=== PATIENT | male | born 1965 | race Caucasian/White ===

== ENCOUNTER → 2021-09-16 17:13 | Outpatient (BNVA) | payer BC, SELFPAY | PROVIDERS: Visit Provider Nurse Practitioner Family | DX: Z20.822 Contact with and (suspected) exposure to COVID-19 (principal) | CPT/HCPCS: 87635 ==

== ENCOUNTER → 2024-01-11 10:00 | Outpatient (BNVA) | payer OTHER, SELFPAY | PROVIDERS: PCP Family Medicine; Referring Provider Family Medicine; Visit Provider Student in an Organized Health Care Education/Training Program | DX: M25.569 Pain in unspecified knee (principal); M17.12 Unilateral primary osteoarthritis, left knee; Z01.818 Encounter for other preprocedural examination | CPT/HCPCS: 73560; 73565 ==

== ENCOUNTER → 2025-01-30 10:44 | Outpatient (BNVA) | payer OTHER, SELFPAY | PROVIDERS: PCP Family Medicine; Visit Provider Student in an Organized Health Care Education/Training Program | DX: M25.561 Pain in right knee (principal); M25.562 Pain in left knee; M17.0 Bilateral primary osteoarthritis of knee | CPT/HCPCS: 73560; 73565 ==

== ENCOUNTER → 2025-02-20 14:13 | Outpatient (BNVA) | payer OTHER, SELFPAY | PROVIDERS: PCP Family Medicine; Visit Provider Physician Assistant | DX: G56.03 Carpal tunnel syndrome, bilateral upper limbs (principal); G56.23 Lesion of ulnar nerve, bilateral upper limbs | CPT/HCPCS: 73110 ==

== ENCOUNTER 2025-03-05 11:13 | Outpatient (CLI) | payer OTHER, SELFPAY ==
[2025-03-05 12:27] LABS: Hematocrit 42.4 % (37-53); Hemoglobin 14.60 g/dL (11.27-16.99); Mean Corpuscular HGB Conc 34.4 g/dL (30-55); Mean Corpuscular Hemoglobin 33.5 pg (27-33); Mean Corpuscular Volume 97.2 fl (82-101); Nucleated Red Blood Cells % 0 %; Platelet Count 210 10^3/cmm (157-399); Red Blood Count 4.36 10^6/uL (3.85-5.65); White Blood Count 5.90 10^3/uL (3.29-11.43)
[2025-03-05 12:42] LABS: Glucose Urine UA Negative (Normal); Nitrate Urine Negative (Negative); Specific Gravity, Urine 1.017 (1.005-1.030)
[2025-03-05 12:47] LABS: Add Urine Microscopic? YES
[2025-03-05 12:49] LABS: Alanine Aminotransferase 37 U/L (0-41); Albumin Level 4.2 g/dL (3.5-5.2); Alkaline Phosphatase 75 U/L (40-130); Anion Gap 15.4 (5-19); Aspartate Amino Transferase 37 U/L (0-40); Blood Urea Nitrogen 23 mg/dL (8-23); Calcium 9.0 mg/dL (8.5-10.5); Carbon Dioxide 24 mmol/L (22-29); Chloride 101 mmol/L (98-107); Globulin 3.2 g/dL (1.3-4.6); Glucose 114 mg/dL (65-115); Osmolality Calculated 287 mOsm/kg (285-295); Potassium 4.4 mmol/L (3.5-5.1); Sodium 136 mmol/L (136-145); Total Protein 7.4 g/dL (6.6-8.7)
== END 2025-03-05 11:14 | disposition home or self-care (01) ==
PROVIDERS: PCP Family Medicine; Visit Provider Student in an Organized Health Care Education/Training Program
DX: Z01.818 Encounter for other preprocedural examination (principal)
CPT/HCPCS: 36415; 80053; 81001; 85025

== ENCOUNTER 2025-03-07 10:24 | Outpatient (CLI) | payer OTHER, SELFPAY ==
--- NOTE | 2025-03-07 10:30 | CT_ITS ---
WS: [id number] CT RIGHT KNEE, NONCONTRAST [facility] TECHNIQUE: Noncontrast CT of the RIGHT knee to include the RIGHT hip and ankle. CLINICAL INFORMATION: M17.11 - Unilateral primary osteoarthritis, right knee COMPARISON: None. DLP: 1096.[address] scans at [facility] use at least one of these dose optimization techniques: automated exposure control; mA and/or kV adjustment per patient size (includes targeted exams where dose is matched to clinical indication); or iterative reconstruction. FINDINGS: Advanced tricompartmental arthritis Right knee. Hypertrophic patella with patellar enthesophytes. Joint space narrowing worse in the medial joint compartment. Advanced degenerative narrowing of the patellofemoral articulation. Prior sequelae of previous intramedullary nat fixation RIGHT femur with a nat removal. Mineralization in the intramedullary canal. Vascular calcification CT/CT knee RT [facility] [id number] IMPRESSION: Images obtained for preoperative purposes.
== END 2025-03-07 10:25 | disposition home or self-care (01) ==
LOC: RAD 10:25
PROVIDERS: PCP Family Medicine; Visit Provider Student in an Organized Health Care Education/Training Program
DX: M17.11 Unilateral primary osteoarthritis, right knee (principal)
CPT/HCPCS: 73700

== ENCOUNTER 2025-03-26 10:22 | Observation (INO) | payer OTHER, SELFPAY ==
[2025-03-26] VITALS (18 sets, daily range): BP systolic 83–132; BP diastolic 51–103; PULSE 69–105; RESP 10–18; TEMP 36.2–36.7; O2SAT 93–98; BMI 29.7
[2025-03-26] MEDS: acetaminophen 1,000 MG/100 ML PIGGYBACK 400 MG IV ×2 (06:29→15:43)
[2025-03-26 06:38] LABS: Hematocrit 44.4 % (37-53); Hemoglobin 15.40 g/dL (11.27-16.99); Mean Corpuscular HGB Conc 34.7 g/dL (30-55); Mean Corpuscular Hemoglobin 32.8 pg (27-33); Mean Corpuscular Volume 94.5 fl (82-101); Nucleated Red Blood Cells % 0 %; Platelet Count 245 10^3/cmm (157-399); Red Blood Count 4.70 10^6/uL (3.85-5.65); White Blood Count 5.13 10^3/uL (3.29-11.43)
[2025-03-26 06:52] LABS: Anion Gap 17.1 (5-19); Blood Urea Nitrogen 16 mg/dL (8-23); Calcium 9.1 mg/dL (8.5-10.5); Carbon Dioxide 23 mmol/L (22-29); Chloride 99 mmol/L (98-107); Creatinine Clr Calc Pharmacy 108.2144; Glucose 115 mg/dL (65-115); Osmolality Calculated 282 mOsm/kg (285-295); Potassium 4.1 mmol/L (3.5-5.1); Sodium 135 mmol/L (136-145)
--- NOTE | 2025-03-26 06:55 | ANES.PREANE2 ---
Pre-Anesthetic Assessment Height/Weight: Height 6 ft 1 in Weight 225 lb Temp Pulse Resp BP Pulse Ox O2 Del Method 97.8 F 80 18 132/103 96 Room Air 03/26/25 06:09 03/26/25 06:09 03/26/25 06:09 03/26/25 06:09 03/26/25 06:09 03/26/25 06:17 Preop Diagnosis: Knee arthritis Operation Date: 03/26/25 07:00 Proposed Procedures p RIGHT Drew Robot Total Knee Arthroplasty(Right) - Alex Dickens, DO Was Beta Billy taken within 24 hours: N/A Was Clonidine taken within 24 hours: N/A Last intake: Intake Last Liquid Date 03/25/25 Last Liquid Time 20:00 Last Solid Date 03/25/25 Last Solid Time 20:00 Social No alcohol and No tobacco Exam alert, oriented x 3, clear to auscultation bilaterally and regular rate & rhythm Airway Submandibular: within normal limits Cervical ROM: within normal limits Mallampati: Class III Dentition: full Anesthetic Plan ASA status: 3 Anesthesia: MAC and Regional (specify below) Other: No prior issues with anesthesia NPO since yesterday evening History of hypertension on amlodipine, HCTZ and losartan. Preop BP 132/103 Denies any pulmonary issues. Quit smoking few decades ago Labs reviewed acceptable for procedure METs greater than 4 Plan for spinal anesthesia with adductor canal block Medications/Allergies Home Medications ?Medication ?Instructions ?Recorded ?Confirmed ?Last Taken ?Type hydrochlorothiazide 25 mg tablet 25 mg PO DAILY 04/15/21 03/23/25 03/26/25 History losartan 100 mg tablet 100 mg PO DAILY 04/15/21 03/23/25 03/23/25 History meloxicam 7.5 mg tablet 7.5 mg PO DAILY 04/15/21 03/23/25 03/18/25 History potassium chloride 10 mEq 10 meq PO DAILY 04/15/21 03/23/25 03/26/25 History tablet,extended release amlodipine 5 mg tablet 5 mg PO DAILY 09/16/21 03/23/25 03/26/25 History Allergies Allergy/AdvReac Type Severity Reaction Status Date / Time No Known Allergies Allergy Verified 03/18/25 21:49 Current Medications Generic Name Dose Route Start Last Admin Trade Name Freq PRN Reason Stop Dose Admin Sodium Chloride 1,000 mls @ 30 mls/hr 03/26/25 06:00 03/26/25 06:28 Sodium Chloride 0.9% IV 03/27/25 05:59 30 mls/hr .Q24H PILAR Administration PFSH Anesthesia Medical History Hypertension Surgical History History of open reduction and internal fixation (ORIF) procedure right femur History of left knee surgery Social History Smoking and tobacco/nicotine status: never used tobacco/nicotine Data Anesthesia 03/26/25 06:15 03/26/25 06:15 Short CBC 03/26/25 Range/Units 06:15 WBC 5.13 (3.29-11.43) 10^3/uL Hgb 15.40 (11.27-16.99) g/dL Hct 44.4 (37-53) % MCV 94.5 (82-101) fl Plt Count 245 (157-399) 10^3/cmm Neut % (Auto) 58.2 % Neut # (Auto) 2.99 (1.8-7.7) 10^3/uL BMP 03/26/25 06:15 Sodium 135 L Potassium 4.1 Chloride 99 Carbon Dioxide 23 BUN 16 Creatinine 0.9 Glucose 115 Calcium 9.1
[2025-03-26] MEDS: ceFAZolin 2,000 MG in sodium chloride 0.9% (plus) 50 ML 100 MG IV ×3 (06:59→21:34)
--- NOTE | 2025-03-26 06:59 | W.PM.OPSFHP ---
Same Day Surgery H&P Indication for Procedure/HPI DATE OF PROCEDURE: March 26, 2025 CHIEF COMPLAINT/INDICATIONFOR SURGICAL PROCEDURE: Right knee DJD PREOP DIAGNOSIS: Right knee knee arthritis PLANNED PROCEDURE: Operation Date: 03/26/25 07:00 Proposed Procedures p RIGHT Drew Robot Total Knee Arthroplasty(Right) - Alex Dickens, DO Medications/Allergies* Home Medications ?Medication ?Instructions ?Recorded ?Confirmed ?Type hydrochlorothiazide 25 mg tablet 25 mg PO DAILY 04/15/21 03/23/25 History losartan 100 mg tablet 100 mg PO DAILY 04/15/21 03/23/25 History meloxicam 7.5 mg tablet 7.5 mg PO DAILY 04/15/21 03/23/25 History potassium chloride 10 mEq 10 meq PO DAILY 04/15/21 03/23/25 History tablet,extended release amlodipine 5 mg tablet 5 mg PO DAILY 09/16/21 03/23/25 History Allergies/Adverse Reactions Allergy/AdvReac Type Severity Reaction Status Date / Time No Known Allergies Allergy Verified 03/18/25 21:49 Current Medications: Generic Name Dose Route Start Last Admin Trade Name Freq PRN Reason Stop Dose Admin Sodium Chloride 1,000 mls @ 30 mls/hr 03/26/25 06:00 03/26/25 06:28 Sodium Chloride 0.9% IV 03/27/25 05:59 30 mls/hr .Q24H PILAR Administration Pertinent History/Comorbid Conditions* Medical History (Updated 02/20/25 @ 14:47 by ANGELA Zamorano) Hypertension Surgical History (Updated 04/15/21 @ 10:22 by Marquis Blackburn MD) History of open reduction and internal fixation (ORIF) procedure right femur History of left knee surgery Social History Smoking and tobacco/nicotine status: never used tobacco/nicotine Pertinent Exam Findings alert, oriented x 3, operative site marked and procedure specific exam findings Please refer to detailed orthopedic examination on 01/30/2025 listed below: Right knee examination: Right knee examination has decreased range of motion with pain on deep flexion, patient has 5 to 10 degree varus deformity correctable on examination. Patient has medial and lateral joint line tenderness palpation most severe medially, tenderness palpation over retropatellar space with crepitus on patella range of motion, stable varus valgus stress testing, smooth hip range of motion with no pain. Examination left knee: Examination left knee decreased range of motion with pain on deep flexion, patient has 5 to 10 degree valgus deformity appreciated correctable on examination competent MCL noted. He has severe lateral joint line tenderness palpation with medial joint line tenderness palpation tenderness palpation over the retropatellar space with crepitus on patella range of motion no evidence of patellar instability stable varus valgus stress. Smooth hip range of motion with no pain or discomfort Recommendations Risks and benefits of procedure reviewed and Patient/family agree to proceed Surgery/Procedure today Other Plans: Plan to proceed to the OR today for a right total knee arthroplasty?Drew robotic assistance cleared the preoperative clearance process no acute changes in overall health since last office visit understands the ins outs procedure risk benefits complication alternatives of surgery and through shared decision making patient like to proceed with surgical invention. All questions answered this time. At this point in time denies any injection of the knee in the past 3 months. All questions answered. Coding Level of Care Code Acute Code for Chg Fwtemitope
[2025-03-26] MEDS: tranexamic acid 1,000 mg/10mL SDV 1000 MG IV (07:11)
--- NOTE | 2025-03-26 07:45 | ANES.PROC ---
Anesthesia Procedures Procedure/Date: 03/26/25 Right adductor canal block for postop pain control Nerve Block ^: Nerve Block 1: Main Anesthesia: spinal anesthesia block Time Out Performed: Yes Consent: requested by attending/covering physician and from patient Nerve block location: adductor canal Anesthesia monitors applied: pulse oximetry, EKG, BP cuff and oxygen Nerve block position: supine Anesthetic Used: ropivicaine 0.5% Amount of anesthesia used (mL): 15 Ultrasound used to: recognize landmarks Nerve Stimulator Used?: Yes Interscalene/Femoral BLK: other needle (pjunk 4inch) Injection: neg aspiration of heme Patient Tolerated Procedure: well Complications: none
[2025-03-26] MEDS: ROPivacaine 0.2% Premix 100 mL 200 MG INTRA-ARTI (08:00)
[2025-03-26] MEDS: tranexamic acid 1,000 mg/10mL SDV 1000 MG XX (08:00)
--- NOTE | 2025-03-26 09:09 | W.PM.BPON ---
Date of Procedure: 03/26/2025 Surgeon: Alex Dickens DO Position Description Manager(s): Kumar Dickens PA-C Procedure(s) performed: Right total knee arthroplasty?Drew robotic assisted Findings of the procedure(s): Underwent procedure as planned without issues or complications. Estimated blood loss: 25 mL Specimen(s) removed: Tibia femur and patellar bone cuts removed Post-operative diagnosis: Right knee DJD
--- NOTE | 2025-03-26 09:11 | P.OP_ITS ---
Operative Report Date of procedure: March 26, 2025 Surgeon: Alex Dickens DO Environmental Science Program Director: Kumar Dickens PA-C: PA was necessary for assistance in this case with leg positioning retraction and protection of neurovascular structures as well as assistance in implantation wound closure and dressing application. Procedure: Preoperative diagnosis: Right knee degenerative joint disease Post-op diagnosis: Same Procedure done: Right total knee arthroplasty, cemented?robotic assisted Drew Implants: Kelly triathlon size 7 femur CR cemented?Right Comstock triathlon size? 6 tibia universal baseplate cemented Comstock triathlon symmetric patella size 36 mm Kelly triathlon polyethylene 10mm Surgeon: Alex Dickens DO Estimated blood?loss: 25 mL Tourniquet 61minutes IV fluids: 1800 mL Urine output: 200 mL Complications: None Condition: stable Disposition: floor Brief History: Patient is a 59-year-old male with with chronic?Right knee degenerative joint d isease.? Patient has been worked up in the outpatient setting in the orthopedic office at this point time through shared decision making given? bxgh-op-vsvi arthritis as well as failed conservative treatment, and pt would?like to proceed with a?Right total knee arthroplasty.? Through shared decision making elected to proceed with surgical intervention for?Right total knee arthroplasty Drew robotic assisted.? We talked about continued conservative treatment and surgical intervention as far as the risk benefits complications alternatives surgical and nonsurgical treatment options.? At this point time understanding patient risks with surgery he agrees to proceed with surgical intervention.? Once again? risk with surgery include but are not?limited to make it better make it worse blood clot, heart attack, stroke, on the table, infection, injury to nerves or vessels, persistent pain, arthrofibrosis, implant failure.? Understanding these risks patient agrees to proceed with surgical intervention consent was obtained in the preoperative holding area.? All questions answered. Procedure: Patient was seen and evaluated in the preoperative holding area.? Consent was reviewed and signed with patient with plan for?Right total knee arthroplasty.? All questions answered.? Correct extremity marked.? Patient seen and evaluated by the anesthesia department and once cleared for surgery was taken back to the operative suite.? Patient was placed into a supine position on the OR table.? All bony prominences were well-padded.? Patient was appropriately secured to the bed.? Patient underwent anesthesia per the anesthesia department.? Patient received spinal anesthesia and? Devlin catheter was placed.? A nonsterile tourniquet was applied to the?Right thigh.? At this point in time a final timeout performed.? Patient received appropriate preoperative antibiotics and TXA. Next the?Right?lower extremity was then prepped and draped in standard orthopedic fashion. Esmarch tourniquet was used exsanguinate the?Right?lower extremity.? Tourniquet was insufflated to 250 mmHg. A standard anterior incision was made over midline of the knee.? Sharp scalpel excision through skin and subcutaneous tissue full-thickness skin flaps were made.? Fascia was elevated off of the extensor retinaculum was stable with medial parapatellar arthrotomy was then made.? The performed standard sequential releases..? Immediately on entry into the joint patient was found to have severe eburnated bone and tricompartmental arthritic changes noted.? With significant osteophyte formation.? Next the the patella was then stuffed and the knee was then flexed.?? Kateryna was placed superiorly around the anterior aspect of the femur this was freed of synovium and I subsequently then placed by 2 femur pins to establish my femur arrays for the Drew robot.? These were then placed bicortically and? femur array was then appropriately secured with appropriate visualization.? Next attention was turned towards the tibial rays.? These were then drilled sequentially bicortically in parallel fashion and intraincisional.? I then placed my guide as well as my tibial array on in place.? This was appropriately secured and had excellent visualization with the Drew robot.? Next the tibial checkpoint as well as femur checkpoint were then placed.? At this point time I then subsequently established my head center as well as my medial?lateral malleoli as well as my checkpoints.? Next utilizing standard Drew technology I then mapped out the appropriate points and confirmation points around the femur as well as the tibia in standard fashion.? Once this was then done I then removed all osteophytes in preparation for dynamic testing.? All osteophytes were removed as well as I removed the ACL and the PCL was excised due to its significant tearing and degeneration noted.? At this point time the knee was brought into full extension and we performed our standard evaluation of our gap balancing stressing his?ligaments and extension as well as flexion appropriate adjustments were made to have appropriate gap balancing in both flexion and extension.? This plan for final cuts to place ligament in appropriate position to correct deformity within the ligamentous tolerances. We get a preoperative plan evaluating our implants which was a size 7 femur and a size 6 tibia.? Next we brought in the Drew robot and sequentially made our femur cuts.? All excess bony cuts were then removed.? Finally we made our tibial cut.? Once this was done a standard PCL retractor was then placed into this position I excised the medial and?lateral meniscus.? The tibial cut was then subsequently removed all excess bony debris was removed.? I then utilized a?lamina form tamper operator and remove the posterior osteophytes.? At this point time sized the tibia and confirmed this was a size 6.? I utilized our blunt probe to establish rotation of tibial implant.? Once this was done I then placed my tibia size 6 trial in appropriate position and then subsequently placed tibial pins to hold this into place placed a size 10 mm poly as well as a size 7 femur which was appropriately impacted in place knee was then subsequently brought into extension. Trials were then assessed,? this was stable with varus valgus stress in extension as well as had symmetrical translation when brought into flexion demonstrating symmetrical gaps. I had excellent balance gaps in flexion and extension with varus and valgus stresses.? At this point I was satisfied with these implants these were then verified and opened on the back table size 6 tibia, size 7 femur,? size 10 mm polythickness.? We did confirm appropriate gap balancing and stresses as well as alignment utilizing? Drew and were satisfied with this plan.? ?At this point time with my trials in place I then towel clip the patella everted this made appropriate measurements subsequently utilizing freehand technique performed by patellar resurfacing this was confirmed to be appropriate resection and subsequently sized to be a 36mm symmetric.? My drill peg guides were then clamped and appropriate position and appropriate position in the patella for appropriate tracking and parallel with the joint.? Pegs were drilled trial implant was placed and the knee was then subsequently ranged and found to have excellent patellar tracking.? Femur pegs were then drilled.?At this point time all of our trial implants were removed.? All checkpoints as well as guidepins and arrays were removed and appropriate counts made.? Satisfied with our tibial placement rotation I then utilized the keel punch and prepped the tibia.? The wound bed? was thoroughly irrigated and dried and prepped for cementation.? Cement was mixed on the back table.? Once cement was ready this was then covered onto the tibia and the tibial baseplate was then impacted and all excess cement was removed.? Next the polyethylene was then impacted into place on the tibial baseplate.? Next cement was placed onto the femur as well as under the femur implants and impacted in to place and all excess cement was extruded and removed.? Knee was taken into full extension? to clear all excess cement was removed.? Warm saline was placed over the joint.? I then towel clip patella and dried for cementation. cemented the patella into place.? This was all clamped and the cement was allowed to cure.? Thorough irrigation performed with pulse?lavage.? I then placed my periarticular injection while the cement was curing.? Once cured the knee was taken through range of motion and had excellent stability and gaps were balanced in flexion and extension.? Tourniquet was then deflated. hemostasis satisfactory with electrocautery.? Next I then subsequently closed the capsule with Ethibond suture as well as a running strata fix suture.? Knee was then taken through range of motion 30 times.? Next the skin was then closed in?layered fashion of running stratifix sutures of deep and subcutenous tissue and skin.? ?closed in flexion and Prineo glue was then placed over the incision this allowed to cure.? Incision was covered with Silverlon, with ABDs soft roll and Fabián wrap.? Patient was then awakened from anesthesia and taken to PACU in stable condition. Disposition: Patient taken to PACU in stable condition will be admitted to the floor for pain control PT/OT weight-bear as tolerated?Right?lower extremity dressing changes as needed, DVT prophylaxis. Pain control. Patient will receive appropriate postoperative antibiotics. patient will be seen today by the internal medicine team for medical management.? Patient will follow up with the office in 2 weeks.? Patient understands agrees with current plan.? All questions answered.
--- NOTE | 2025-03-26 09:17 | XRR_ITS ---
PROCEDURE INFORMATION: Exam: XR Right Knee Exam date and time: 03/26/2025 9:36 AM Age: 60 years old Clinical indication: Device placement; Joint replacement hardware; Prior surgery; Surgery date: Post-operative (0-2 days); Surgery type: S/P R tka TECHNIQUE: Imaging protocol: Radiologic exam of the right knee. Views: 1 or 2 views. COMPARISON: CT knee RT [facility] [id number] 03/07/2025 10:53 AM FINDINGS: Bones/joints: There has been remote removal of an intramedullary nat within the right femur. Status post recent right knee replacement with some postoperative gas densities present anteriorly on the cross-table lateral view. Bandage material overlies the anterior aspect of the right knee. There is satisfactory alignment and positioning of the right knee prosthesis. Soft tissues: Normal. XR/XR knee RT 1-2V [id number] IMPRESSION: 1. There are no acute fractures. 2. Status post right knee replacement with postoperative gas density seen anteriorly on the cross-table lateral view.
--- NOTE | 2025-03-26 09:38 | PM.PACU ---
PACU note Narrative: Patient is a 60-year-old male that just underwent a right total knee arthroplasty. Pt transferred to PACU in stable condition. Dressing is dry. pt is awake and alert. pt can wiggle toes. Distal pulses are palpable toes are warm and well-perfused. Cap refill is normal and under 2 seconds. Sensation to foot is intact. Pain is controlled. Exam: awake Disposition: admitted
--- NOTE | 2025-03-26 09:42 | PM.CONSULT ---
Providers/Reason For Consult Consulting Physician/Specialty*: Hospitalist Reason for Consult*: Medical management Attending Physician: Alex Dickens DO Primary Care Provider: Thaddeus Burnham MD History of Present Illness History of Present Illness Manny Toney is a 60 year old gentleman with a history of hypertension and right knee osteoarthritis who underwent a robotic-assisted right total knee arthroplasty today. The procedure was reported as uncomplicated with an estimated blood loss of 25 mL. He is currently in the recovery phase under spinal anesthesia and reports no pain or nausea. He denies fever, chills, chest pain, shortness of breath, cough, gastrointestinal or genitourinary bleeding, rash, or other acute symptoms. Planned management includes reassessment of blood counts, initiation of VTE prophylaxis, pain control, and physical-therapy evaluation with an anticipated discharge home tomorrow. Review of Systems Const: Denies: fever(s), chills, body aches or malaise ENMT: Denies: throat pain Card: Denies: chest pain, edema, pre-syncope or dyspnea on exertion Resp: Denies: dyspnea, productive cough, change in phlegm color or hemoptysis GI: Denies: abdominal pain, nausea, vomiting, diarrhea, constipation, hematochezia or melena : Denies: flank pain, difficulty urinating, urinary frequency or hematuria Musc: Denies: back pain, joint swelling or joint redness Skin/Breast: Denies: rash or new lesions Neuro: Denies: headache(s) or confusion Medications/Allergies Home Medications ?Medication ?Instructions ?Recorded ?Confirmed ?Last Taken ?Type hydrochlorothiazide 25 mg tablet 25 mg PO DAILY 04/15/21 03/23/25 03/26/25 History losartan 100 mg tablet 100 mg PO DAILY 04/15/21 03/23/25 03/23/25 History meloxicam 7.5 mg tablet 7.5 mg PO DAILY 04/15/21 03/23/25 03/18/25 History potassium chloride 10 mEq 10 meq PO DAILY 04/15/21 03/23/25 03/26/25 History tablet,extended release amlodipine 5 mg tablet 5 mg PO DAILY 09/16/21 03/23/25 03/26/25 History Allergies Allergy/AdvReac Type Severity Reaction Status Date / Time No Known Allergies Allergy Verified 03/18/25 21:49 Current Medications Generic Name Dose Route Start Last Admin Trade Name Edwin PRN Reason Stop Dose Admin Sodium Chloride 1,000 mls @ 30 mls/hr 03/26/25 06:00 03/26/25 07:37 Sodium Chloride 0.9% IV 03/27/25 05:59 Infused .Q24H PILAR Infusion PFSH Acute PFSH: Medical History Hypertension Surgical History History of open reduction and internal fixation (ORIF) procedure right femur History of left knee surgery Social History Smoking and tobacco/nicotine status: never used tobacco/nicotine Alcohol intake: current Alcohol intake frequency: 3 or more drinks per day Alcohol type: hard liquor Substance/Drug Use: never Vitals/I&O/Wt Last Vital Signs Temp 97.8 F 03/26/25 06:09 Pulse 80 03/26/25 06:09 Resp 18 03/26/25 06:09 BP 132/103 03/26/25 06:09 Pulse Ox 96 03/26/25 06:09 O2 Del Method Room Air 03/26/25 06:17 03/25/25 03/26/25 03/26/25 22:59 06:59 14:59 Intake Total 1850 / 1850 Output Total 225 / 225 Balance 1625 / 1625 Weight last 48 hrs Weight 102.058 kg Physical Exam Const: COMMON NORMALS: patient oriented x3 and alert GENERAL APPEARANCE: cooperative ORIENTATION/CONSCIOUSNESS: Yes awake HENMT: COMMON NORMALS: oropharynx normal Neck/C-Spine: COMMON NORMALS: no JVD Resp: COMMON NORMALS: normal respiratory effort and clear to auscultation bilaterally AUSCULTATION: clear to auscultation bilaterally Cardio: COMMON NORMALS: no JVD, regular rhythm, S1 normal heart sound present, S2 normal heart sound present and No murmurs present (Cardio) RHYTHM: regular rhythm HEART SOUNDS: S1 normal heart sound present and S2 normal heart sound present GI: COMMON NORMALS: Normal to inspection, nondistended, normoactive bowel sounds present, Soft to palpation and non-tender PALPATION: Yes Soft to palpation Extremity: COMMON NORMALS: no joint enlargement and no pedal edema OTHER: Post-op knee dressing. Starting to minimally move toes BL. No edema. Neuro: COMMON NORMALS: patient oriented x3 and moves all extremities SENSORIUM/ORIENTATION: Yes alert Skin: COMMON NORMALS: no rashes or lesions noted GENERAL SKIN EXAM: no rashes or lesions noted Urinary Catheter Management: Devlin: Cath Placed During This Visit: yes Urinary Catheter Date of Insertion: 03/26/25 Urinary Catheter Time of Insertion: 07:17 Data 03/26/25 06:15 03/26/25 06:15 A&P Assessment and plan 1. Status post total right knee replacement: Robotic-assisted right TKA today; EBL 25 mL; currently pain-free but spinal anesthesia effects present; labs within normal limits. Reviewed vitals, CBC, BMP, knee x-ray, orthopedic provider note. Discussed with orthopedic surgeon. Discussed with nursing, counseling case manager. - Monitor CBC tomorrow to screen for post-op anemia. - Hold meloxicam post-operatively. - I-S - Pain control with oxycodone as needed; IV dilaudid for severe breakthrough pain. - Zofran PRN for nausea. - Begin Eliquis tomorrow for VTE prophylaxis per orthopedics. - Physical-therapy evaluation and mobilization. - Anticipated discharge home tomorrow if pain, mobility, and labs satisfactory. Plan: Hypertension : Chronic HTN on amlodipine, losartan, HCTZ; barbie-operative BP 132/103 in PACU but currently 94/70. - Hold antihypertensives for now, with blood pressure rising may resume home antihypertensives (amlodipine, losartan, HCTZ). - Monitor blood pressure during hospitalization. Heavy alcohol use : Patient admits to liquor intake ~5?10 drinks daily; counseled on cardiovascular and oncologic risks. - Advised to limit alcohol to <= 2 drinks/day. - No withdrawal symptoms expected but monitor clinically while inpatient. - Provide educational counseling materials on alcohol reduction. - Start thiamine, folic acid, multivitamin PDMP PDMP Reviewed: Not Reviewed Consult Attestations Medical Necessity Statement: Continue postoperative care after right TKA, pending PT assessment, reassessment of blood counts, discharge planning and arrangements. and High MDM includes amount and/or complexity of data reviewed/ordered [ previous or external records, resulted lab(s)/test(s), ordered lab(s)/test(s) and other healthcare professional discussion] and described risk of complication, morbidity or mortality of management as documented Diagnoses Status post total right knee replacement Z96.651
--- NOTE | 2025-03-26 10:30 | ANE.PACU2 ---
Inpatient post-anesthesia follow up: Airway intact: Yes Vital signs: Temperature 97.5 F Pulse Rate 79 Respiratory Rate 18 Blood Pressure 127/84 Pulse Oximetry 98 Oxygen Delivery Me thod Room Air Oxygen Flow Rate Fraction of Inspir ed Oxygen Hydration adequate: Yes Nausea and vomiting: No Pain level: 1 Mental status: Baseline
--- OUTSIDE RECORDS SUMMARY | 2025-03-26 12:20 | XMS_ITS | Patient Health Record ---
Author Organization [facility] Address [address] [place] [address] Care Team Providers Care Logistician Name Role Phone Kate Mesa Primary Care Provider Emiliano Cheng Unavailable [phone] Allergies No Known Allergies Reason For Referral No Information Medications Medication SIG (Take, Route, Frequency, Duration) Notes Start Date End Date Status Meloxicam 15 MG Tablet 1 tablet Orally Once a day; Duration: 90 days M19.90 Osteoarthritis Active hydroCHLOROthiazide 25 MG Tablet 1 tablet in the morning Orally Once a day; Duration: 30 days E10 Essential hypertension Active Multivitamin - Tablet 1 tablet Orally Once a day Active Losartan Potassium 100 MG Tablet 1 tablet Orally Once a day; Duration: 90 days E10 Essential hypertension Active amLODIPine Besylate 5 MG Tablet 1 tablet Orally once daily in evening for blood pressure; Duration: 90 days E10 Essential hypertension Active Fluticasone Propionate 50 MCG/ACT Suspension 1 spray in each nostril Nasally Once a day; Duration: 90 days J30.2 Seasonal allergies Active Cetirizine HCl 10 MG Tablet 1 tablet Orally Once a day; Duration: 90 days J30.2 Seasonal allergies Active Sildenafil Citrate 20 MG Tablet 1 - 5 tablets as needed to achieve erection Orally Do not exceed 5 tablets daily; Duration: 30 days N52.9 Male erectile dysfunction Active Fenofibrate 48 MG Tablet 1 tablet with food Orally Once a day; Duration: 90 days E78.1 Hypertriglyceridemia Active Immunizations Vaccine Route Administration Date Status Comme nts COVID-19 Vaccine (Moderna) Dose #1 Unknown 03/15/2021 A dministered COVID-19 Vaccine (Moderna) Dose #2 Unknown 04/05/2021 A dministered Flucelvax Quadrivalent Pres Free Unknown 05/26/2021 Ref used Social History Tobacco Use: Social History Observation Description Date Details (start date - stop date) Former Smoker NA - NA Social History Depression Screening Social Info Question Answer Notes PHQ-9 Little interest or pleasure in doing thin gs Not at all Feeling down, depressed, or hopeless Not at all Trouble falling or staying asleep, or sleeping t oo much Several days Feeling tired or having little energy Nearly tamera ry day Poor appetite or overeating Nearly every day Feeling bad about yourself, or that you are a failure, or have let yourself or your family down Not at all Trouble concentrating on thi ngs, such as reading the newspaper or watching television Not at all Moving or speaking so slowly that other people could have noticed. Or the opposite ? being so fidgety or restless that you have been moving around a lot more than usual Not at all Thoughts that you would be b rubio off , or of hurting yourself in some way Not at all Total Score 7 Interpretation Mild Depression Drugs/Alcohol: Social Info Question Answer Notes Alcohol Screen (Audit-C) Did you have a drink containing alcohol in the past year? Yes How often did you have a drink containing alcohol in the past year? 4 or more times a week (4 points) How many drinks did you have on a typical day when you were drinking in the past year? 3 or 4 drinks (1 point) How often did you have 6 or more drinks on one occasion in the past year? Never (0 point) Points 5 Interpretation Positive Drugs Have you used drugs other than those for medical reasons in the past 12 months? No Caffeine Intake: 3-4 cups per day Tobacco Use: Social Info Question Answer Notes Screening Not Performed: Do you smoke? No xTobacco Use/Smoking Are you a former smoker How long has it been since you last smoked? > 10 years Tobacco use other than smoking: Are you an other tobac co user? No Additional Details Category Social Info Options Details Drugs/Alcohol: Do you smoke marijuana? De nies Do you drink alcohol? Yes Problems Problem Type SNOMED Code ICD Code Onset Dates Problem Status W/U Status Risk Notes Problem Essential hypertension (89346232) Benign essential HTN (I10) Active confirmed Problem Essential hypertension (87721583) Essential hypertension (I10) Active confirmed Problem Hypertriglyceridemia (702750315) Hypertriglyceridemia (E78.1) Active confirmed Problem Osteoarthritis (898544919) Osteoarthritis (M19.90) Active confirmed Problem Morbid obesity (842701414) Morbid obesity (E66.01) Active confirmed Plan Of Treatment No Information Insurance Providers Payer Name Payer Address Payer Phone Subscriber Number Group Number Insured Name Patient Relationship to Insured Coverage Start Date Coverage End Date [facility] [address] [place] [id number] [phone] [id number] Manny Toney Self - patient is the insured Medical (General) History Medical History History ICD Code Benign essential HTN I10 Osteoarthritis M19.90 Surgical History Surgery Date(Month/Year) right femur rebreak x2 left knee scope Hospitalization History Reason Date(Month/Year) see surgeries
--- OUTSIDE RECORDS SUMMARY | 2025-03-26 12:21 | XMS_ITS | Data Portability ---
Author Organization KAYLI Figueroa [facility] Address [address] [address] Care Team Providers Care Crusher Name Role Phone KRISTINA BURNHAM Primary Care Provider [phone] Assessment Encounter Date Assessment Date Assessment LastModified by Organization Details LastModified Time 09/01/2023 09/01/2023 Discussed healthy lifestyle including well-balanced diet, healthy weight, and regular exercise. Will obtain routine lab work for evaluation and health maintenance. Refills provided for his sildenafil. Discussed options for his knee pain and the patient will consider a referral to discuss knee replacement versus proceeding with just injections. Hand numbness appears to be referred positional and related to ulnar entrapment at the elbow. [email or web address] Not available 09/01/2023 12:08:20 Plan of Treatment Reminders Order Date Submit Date Provider Last Modified By Organization Details Last Modified Time Details Appointments None recorded. Lab PSA, serum or plasma 2023 024 [employer] [facility], [address] [place] [address] [address], [address] [place], [address], 4 06:18:05 lipid panel, blood 2023 024 [facility], [address] [facility], [facility] 1, [place], [address], 4 17:41:02 CMP, serum or plasma 2023 024 [facility], [address] [facility], [facility] [address], [address], 4 17:41:00 CBC [address] [facility], [address], [facility] 1, [place], [address], 4 11:20:01 Referral orthopedic surgeon referral 2023 024 [email or web address] [facility], [address] [place], [address], 4 12:13:11 Procedures None recorded. Surgeries None recorded. Imaging None recorded. Medication Orders Kenalog 40 mg/mL suspension for injection 2023 024 hpliler Not available 4 09:16:59 Kenalog 40 mg/mL suspension for injection 2023 024 hpliler Not available 4 09:16:59 sildenafil (pulmonary hypertensio n) 20 mg tablet 2023 024 [facility] [place], [address] [place], [address], 4 18:10:42 Patient TargetsNo targets recorded. Patient InstructionsNo instructions recorded. Reason for Referral Orthopedic Surgeon Referral for Bilateral osteoarthritis of knees Referring Physician: Kristina Burnham, Family Medicine, Encounter Date: 11/16/2023 Results Created Date Observation Date Name Description Value Unit Range Abnormal Flag Note LastModifiedBy Organization Detail LastModifiedTime 09/01/19 24 09/01/2023 CBC WBC 4.8 x10 4.5-10 .5 Not Available [facility] [address] [facility] 1, [place], [address], 09/01/2023 11:20:01 09/01/19 24 09/01/2023 CBC RBC 5.04 x10 4.30-5 .90 Not Available [facility] [address] [facility] 1, [place], [address], 09/01/2023 11:20:01 09/01/19 24 09/01/2023 CBC HGB 16.1 g/dL 13.5-1 8.0 Not Available [facility] [address] [facility] 1, [place], [address], 09/01/2023 11:20:01 09/01/19 24 09/01/2023 CBC HCT 47.3 % 35.0-6 0.0 Not Available [facility] [address] [facility] 1, [place], [address], 09/01/2023 11:20:01 09/01/19 24 09/01/2023 CBC MCV 93.9 fL 80.0-9 9.9 Not Available [facility] [address] [facility] 1, [place], [address], 09/01/2023 11:20:01 09/01/19 24 09/01/2023 CBC MCH 32.0 pg 27.0-3 2.0 Not Available [facility] [address] [facility] 1, [place], [address], 09/01/2023 11:20:01 09/01/19 24 09/01/2023 CBC MCHC 34.1 g/dL 32.0-3 6.0 Not Available [facility] [address] [facility] 1, [place], [address], 09/01/2023 11:20:01 09/01/19 24 09/01/2023 CBC RDW 14.5 % 11.5-1 4.5 Not Available [facility] [address] [facility] 1, [place], [address], 09/01/2023 11:20:01 09/01/19 24 09/01/2023 CBC plt 252.2 x10 150.0- 451.0 Not Available [facility] [address] [facility] 1, [place], [address], 09/01/2023 11:20:01 09/01/19 24 09/01/2023 CBC lymphocytes % 36.2 % 20.0-5 0.0 Not Available [facility] [address] [facility] [address], [place], [address], 09/01/2023 11:20:01 09/01/19 24 09/01/2023 CBC granulcytes % 48.2 % 30.0-7 0.0 Not Available [facility] [address] [facility] 1, [place], [address], 09/01/2023 11:20:01 09/01/19 24 09/01/2023 CBC monocytes % 9.4 % 2.0-10 .0 Not Available [facility] [address] [facility] 1, [place], [address], 09/01/2023 11:20:01 09/01/19 24 09/01/2023 CBC granulcytes# 2.3 x10 Not Graciela ilable [facility] [address] [facility] 1, [place], [address], 09/01/2023 11:20:01 09/01/19 24 09/01/2023 CBC lymphocytes # 1.7 x10 Not Available [facility] [address] [facility] 1, [place], [address], 09/01/2023 11:20:01 09/01/19 24 09/01/2023 CBC monocytes # 0.5 x10 Not Avai lable [facility] [address] [facility] 1, [place], [address], 09/01/2023 11:20:01 09/01/19 24 09/01/2023 CMP (MALE ) glucose 106.0 mg/dL 60.0-9 9.0 high Not Available [facility] [address] [facility] 1, [place], [address], 09/01/2023 17:41:00 09/01/19 24 09/01/2023 CMP (MALE ) BUN (blood urea nitrogen) 22.0 mg/dL 10.0-2 6.0 Not Available [facility] [address] [facility] 1, [place], [address], 09/01/2023 17:41:00 09/01/19 24 09/01/2023 CMP (MALE ) creatinine (serum) 1.1 mg/dL 0.4-1. 5 Not Available [facility] [address] [facility] 1, [place], [address], 09/01/2023 17:41:00 09/01/19 24 09/01/2023 CMP (MALE ) BUN/creatini ne ratio 20.00 ratio Not Available [facility] [address] [facility] 1, [place], [address], 09/01/2023 17:41:00 09/01/19 24 09/01/2023 CMP (MALE ) eGFR calculated 72.8 Not Available [facility] [address] [facility] 1, [place], [address], 09/01/2023 17:41:00 09/01/19 24 09/01/2023 CMP (MALE ) total protein 8.8 g/dL 6.0-8. 5 high Not Available [facility] [address] [facility] 1, [place], [address], 09/01/2023 17:41:00 09/01/19 24 09/01/2023 CMP (MALE ) total bilirubin 1.0 mg/dL 0.2-1. 3 Not Available [facility] [address] [facility] 1, [place], [address], 09/01/2023 17:41:00 09/01/19 24 09/01/2023 CMP (MALE ) albumin 4.7 g/dL 3.5-5. 5 Not Available [facility] [address] [place] [facility], [place], [address], 09/01/2023 17:41:00 09/01/19 24 09/01/2023 CMP (MALE ) globulin 4.1 calc Not Available [facility] [address] [facility] 1, [place], [address], 09/01/2023 17:41:00 09/01/19 24 09/01/2023 CMP (MALE ) AST (SGOT) 42.0 U/L 0.0-46 .0 Not Available [facility] [address] [facility] 1, [place], [address], 09/01/2023 17:41:00 09/01/19 24 09/01/2023 CMP (MALE ) altv (SGPT) 44.0 U/L 13.0-6 9.0 normal Not Available [facility] [address] [facility] 1, [place], [address], 09/01/2023 17:41:00 09/01/19 24 09/01/2023 CMP (MALE ) A/G ratio 1.1 ratio Not Available [facility] [address] [facility] 1, [place], [address], 09/01/2023 17:41:00 09/01/19 24 09/01/2023 CMP (MALE ) ALP phos 75.0 U/L 30.0-1 40.0 normal Not Available [facility] [address] [facility] 1, [place], [address], 09/01/2023 17:41:00 09/01/19 24 09/01/2023 CMP (MALE ) calcium 9.7 mg/dL 8.4-10 .5 Not Available [facility] [address] [place] [facility], [place], [address], 09/01/2023 17:41:00 09/01/19 24 09/01/2023 CMP (MALE ) sodium 141.0 mmol/ L 136.0- 145.0 Not Available [facility] [address] [facility] 1, [place], [address], 09/01/2023 17:41:00 09/01/19 24 09/01/2023 CMP (MALE ) potassium 4.3 mmol/ L 3.5-5. 1 Not Available [facility] [address] [place] [facility], [place], [address], 09/01/2023 17:41:00 09/01/19 24 09/01/2023 CMP (MALE ) chloride 103.0 mmol/ L 98.0-1 10.0 normal Not Available [facility] [address] [facility] 1, [place], [address], 09/01/2023 17:41:00 09/01/19 24 09/01/2023 CMP (MALE ) C02 26.0 mmol/ L 22.0-3 1.0 Not Available [facility] [address] [facility] 1, [place], [address], 09/01/2023 17:41:00 09/01/19 24 09/01/2023 CMP (MALE ) anion gap 12.0 calc Not Available [facility] [address] [facility] 1, [place], [address], 09/01/2023 17:41:00 09/01/19 24 09/01/2023 CMP (MALE ) osmolality 294.6 calc Not Available [facility] [address] [place] [facility], [place], [address], 09/01/2023 17:41:00 09/01/19 24 09/01/2023 LIPID PROFI LE (MALE ) cholesterol 241.0 mg/dL 0.0-20 0.0 high Not Available [facility] [address] [facility] 1, [place], [address], 09/01/2023 17:41:02 09/01/19 24 09/01/2023 LIPID PROFI LE (MALE ) trig 376.0 mg/dL 0.0-15 0.0 high Not Available [facility] [address] [facility] 1, [place], [address], 09/01/2023 17:41:02 09/01/19 24 09/01/2023 LIPID PROFI LE (MALE ) HDL - direct 45.0 mg/dL >40.0 Not Available [facility] [address] [facility] 1, [place], [address], 09/01/2023 17:41:02 09/01/19 24 09/01/2023 LIPID PROFI LE (MALE ) VLDL - direct 75.2 mg/dL Not Available [facility] [address] [facility] 1, [place], [address], 09/01/2023 17:41:02 09/01/19 24 09/01/2023 LIPID PROFI LE (MALE ) LDL - direct 120.8 mg/dL 0.0-13 0.0 Not Available [facility] [address] [facility] 1, [place], [address], 09/01/2023 17:41:02 09/01/1909/02/2023 PSA, TOTAL PSA, total 0.32 NG/mL < or = 4.00 normal The total PSA value from this assay gilmar m is stand ardiz ed again st the WHO stand yovani. The test resul t will be appro ximat tre 20% lower when guillaume red to the equim olar- stand ardiz ed total PSA ([place] man Coult er). Guillaume rison of seria l PSA resul ts shoul d be inter prete d with this fact in mind. This test was perfo rmed using the Sieme ns chemi lumin escen t metho d. Value s obtai michel from diffe rent assay metho ds canno t be used inter maldonado eably . PSA level s, regar dless of value , shoul d not be inter prete d as absol [place] evide nce of the prese nce or absen ce of disea se. Not Available [facility] [address], [place], [address], 09/02/2023 06:18:05 01/30/2001/29/2025 COLOG UARD cologuard result reportable NEGATI VE negati ve normal The Colog uard (TM) test was perfo rmed on this speci men. NEGAT BIRD TEST RESUL T. A negat bird Colog uard resul t indic ates a low likel ihood that a color ectal cance r (CRC) or advan franchesca adeno ma (malcolm omato us polyp s with more advan franchesca pre-m align ant featu res) is prese nt. The [facility] e that a perso n with a negat bird Colog uard test has a color ectal cance r is less than 1 in 1500 (nega tive predi ctive value >99.9 %) or has an advan franchesca adeno ma is less than 5.3% (nega tive predi ctive value 94.7% ). These data are based on a prosp ectiv e cross -sect ional study of 10,00 0 indiv idual s at [facility] risk for color ectal cance r who were scree michel with both Colog uard and colon oscop y. (Rukhsana Costa et al, N Engl J Med 2014; 370(1 4):12 86-12 97) The jah l value (refe rence range ) for this assay is negat bird. COLOG UARD RE-SC REENI NG RECOM MENDA TION: Perio dic color ectal cance r scree stephane is an impor tant part of preve ntive healt hcare for asymp tomat ic indiv idual s at [facility] risk for color ectal cance r. Follo wing a negat bird Colog uard resul t, the Ameri can Cance r Socie ty and U.S. Multi -Soci ety Task Force scree stephane guide lines recom mend a Colog uard re-sc lloyd lee inter jihan of 3 years . Refer ences : Ameri can Cance r Socie ty Guide line for Color ectal Cance r Scree stephane: https ://ww w.can cer.o rg/ca ncer/ colon -rect al-ca ncer/ detec tion- diagn osis- stagi ng/ac s-rec ommen datio ns.ht ml.; Calvin CHAO, Tony GONSALEZ, Dena SolorzanoK, Color ectal Cance r Scree stephane: Recom menda tions for Physi cians and Patie nts from the U.S. Multi -Soci ety Task Force on Color ectal Cance r Scree stephane , Am J Gastr oente rolog y 2017; 112:1 016-1 030. TEST DESCR IPTIO N: Frank site algor ithmi c delaney sis of stool DNA-b yash stevens with hemog lobin immun oassa y. Quant itati ve value s of indiv idual bioma rkers are not repor table and are not assoc iated with indiv idual bioma rker resul t refer ence range s. Colog uard is inten ded for color ectal cance r scree stephane of adult s of eithe r sex, 45 years or older , who are at [facility] for color ectal cance r (CRC) . Colog uard has been appro karly for use by the U.S. FDA. The perfo rmanc e of Colog uard was estab marilynn linn in a cross secti onal study of [facility] adult s aged 50-84 . Colog uard perfo rmanc e in patie nts ages 45 to 49 years was estim ated by francisco-skylar rocha delaney sis of near- age group s. Colon oscop ies perfo rmed for a posit bird resul t may find as the most clini andreea signi fican t lesio n: color ectal cance r [4.0% ], advan franchesca adeno ma (incl uding sessi le brittany edson polyp s great er than or equal to 1cm diame ter) [20%] or non- advan franchesca adeno ma [31%] ; or no color ectal neopl khalida [45%] . These estim ates are deriv ed from a prosp ectiv e cross -sect ional scree stephane study of 0 indiv idual s at [facility] risk for color ectal cance r who were scree michel with both Colog uard and colon oscop y. (Rukhsana Costa et al, N Engl J Med 2014; 370(1 4):12 86-12 97.) Colog uard may produ ce a false negat bird or false posit bird resul t (no color ectal cance r or preca ncero us polyp prese nt at colon oscop y follo w up). A negat bird Colog uard test resul t does not guara ntee the absen ce of CRC or advan franchesca adeno ma (pre- cance r). The curre nt Colog uard scree stephane inter jihan is every 3 years . (Amer ican Cance r Socie ty and U.S. Multi -Soci ety Task Force ). Colog uard perfo rmanc e data in a 0 patie nt pivot al study using colon oscop y as the refer ence metho d can be acces sed at the follo wing locat ion: www.e xactl abs.c om/re sulfabian . Addit ional descr iptio n of the Colog uard test proce ss, warni ngs and preca ution s can be found at www.c cristino lambd.c om. Not Available [facility] (Cologuard Orders Only) [address], [place], [address], 02/02/2025 18:10:40 Result Notes None recorded. Problems Name Problem SNOMED Code Status Onset Date Resolution Date Notes Provider Name and Address Organization Details Recorded Time Osteoart hritis NOS Completed 202104/23/2022 Osteoart hritis - Status is Inactive ; 04/23/20 12:52PM by Isaiah Rehman on/Hannah dum; Promoted ; acuity set as *; Not Available [facility] 3 03:08:37 Hyperten sive disorder 81408735 Active 2021 HYPERTEN LACHELLE; Impressi on: refills provided for medicati ons. Well controll ed, no changes needed Lidia mohr [facility] 4 09:16:45 Arthropa thy 177010576 Active 2021 OSTEOART HRITIS Lidia mohr [facility] 4 09:16:37 Erectile dysfunct ion 958304934 Active 2023 Kristina Burnham MD [address] [place] [address] , [facility] 4 10:06:08 Bilatera l arthriti s of knees 75123050728 52902 Active 2023 Kristina Burnham MD [address] [place] [address] , [facility] 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 4 12:08:58 Bilatera l osteoart hritis of knees 26820775544 9107 Active 2023 Kristina Burnham MD [address] [place] [address] , [facility] 4 10:59:30 Problem Notes None recorded. Procedures Surgical History Date Name Laterality Status Provider Name and Address Organization Details Recorded Time 11/16/2023 Joint Inj Kenalog- Shoulder, Hip, Knee completed Kristina Burnham MD [address] [place] [address], [id number], [facility] 11/18/2023 17:40:53 Imaging Results None recorded. Procedure Notes None recorded. Medical Equipment None Reported. Allergies No known drug allergies Medications Name Sig Start Date Stop Date Status Note LastModified by Organization Details LastModified Time meloxicam 15 mg tablet TAKE 1 TABLET BY MOUTH EVERY DAY active Not Available Not Available No t Available potassium chloride ER 10 mEq tablet,ex tended release TAKE 1 TABLET BY MOUTH EVERY DAY active Not Available Not Available No t Available amlodipin e 5 mg tablet TAKE 1 TABLET BY MOUTH EVERY DAY active Not Available Not Available No t Available tramadol 50 mg tablet every 6 hours as needed for pain 09/01 completed Recorded 07/14/20 1:50PM by Mari Carmona LPN, Office Visit; Refill Quantity : 0; Not Available Not Available Not Available Kenalog 40 mg/mL suspensio n for injection Take 1 mL by injectio n route. 05/17 completed Not Available Not Available Not Available hydrochlo rothiazid e 25 mg tablet TAKE 1 TABLET BY MOUTH EVERY DAY active Not Available Not Available No t Available losartan 100 mg tablet TAKE ONE TABLET BY MOUTH EVERY DAY active Not Available Not Available No t Available amoxicill in 875 mg-potass ium clavulana te 125 mg tablet TAKE 1 TABLET BY MOUTH TWICE DAILY FOR 7 DAYS 03/05 completed Not Available Not Available Not Available potassium chloride ER 10 mEq tablet,ex tended release(p art/cryst ) TAKE ONE TABLET BY MOUTH EVERY DAY 09/01 completed Not Available Not Available Not Available sildenafi l (pulmonar y hypertens ion) 20 mg tablet take 3-5 tablets BY MOUTH DAILY one TO four hours before sexual activity 2024 active Not Available Not Available Not Avai lable meloxicam daily 08/25 completed Recorded 07/21/20 3:18PM by Morena Sigifredo, Historic al Summary; Refill Quantity : 90; Tablet; Not Available Not Available Not Available Flonase daily active Not Available Not Avail able Not Available hydrochlo rothiazid e daily 08/25 completed Recorded 04/17/20 22 2:31PM by Kristina Burnham MD, Office Visit; Refill Quantity : 90; Tablet; Not Available Not Available Not Available sildenafi l daily one to four hours prior to sexual activity 09/01 completed 48316; Recorded 10/27/19 23 8:54AM by Morena Green (Authori elizabethd through Kristina Burnham MD), Refill Request; Refill Quantity : 30; Tablet; Not Available Not Available Not Available Multivita mins daily active Not Available Not Available Not Available cetirizin e daily active Not Available Not Available Not Available Potassium Chloride ER daily 08/25 completed Recorded 08/14/20 22 8:18AM by Morena Green, Historic al Summary; Refill Quantity : 90; Tablet; Not Available Not Available Not Available amlodipin e besylate (bulk) daily 08/25 completed Recorded 04/17/20 22 2:31PM by Kristina Burnham MD, Office Visit; Refill Quantity : 90; Tablet; Not Available Not Available Not Available losartan potassium (bulk) daily 08/25 completed Recorded 04/17/20 22 2:31PM by Kristina Burnham MD, Office Visit; Refill Quantity : 90; Tablet; Not Available Not Available Not Available Vitals Date Recorded Respiratory rate Body height Body mass index (BMI) Body weight Body temperature Heart rate Oxygen saturation Oxygen saturation in Arterial blood by Pulse oximetry Systolic And Diastolic Provider Name and Address Organization Details Last Updated DateTime 4 20 /min 185.42 cm 30.7 kg/m2 892232. 23 g 97.5 [degF] 81 /min 99 % 99 % 130/78 mm[Hg] MORENA GREEN [facility] 4 09:49:17 Date Recorded Body height Body mass index (BMI) Body weight Body temperature Oxygen saturation Oxygen saturation in Arterial blood by Pulse oximetry Heart rate Systolic And Diastolic Provider Name and Address Organization Details Last Updated DateTime 4 185.42 cm 29.9 kg/m2 279739. 47 g 97.8 [degF] 97 % 97 % 78 /min 130/84 mm[Hg] YURI TOLEDO [facility] 4 10:48:38 Date Recorded Body weight Body mass index (BMI) Body height Body temperature Heart rate Oxygen saturation Oxygen saturation in Arterial blood by Pulse oximetry Systolic And Diastolic Provider Name and Address Organization Details Last Updated DateTime 5 942781. 69 g 29.6 kg/m2 185.42 cm 97.7 [degF] 84 /min 98 % 98 % 130/84 mm[Hg] [facility] 5 11:45:29 Social History Question Answer Notes LastModified by [employer] Details LastModified Time Tobacco Smoking Status Former Smoker Katerin [facility] 03/05/2025 11:50:21 What Was The Date Of Your Most Recent Tobacco Screening? 03/05/2025 [email or web address] Information not available 03/05/2025 Sex: Unknown Functional Status Question Answer Note LastModified by [employer] Details LastModified Time Do you use any illicit or recreational drugs? No Information not available 03/05/2025 What is your level of alcohol consumption? Moderate [email or web address] Information not available 03/05/2025 Mental Status None recorded. Family History Nothing Reported. Medical History No medical history recorded. Immunizations Vaccine Type Date Status Note Provider Nam e and Address Organization Details Recorded Time COVID-19, mRNA, LNP-S, bivalent, PF, 30 mcg/0.3 mL dose 08/18/2022 completed Lidia Hand [facility] 05/17/2024 09:17:09 Past Encounters Encounter ID Performer Location Encounter Start Date Encounter Closed Date Diagnosis/Indication Diagnosis SNOMED-CT Code Diagnosis ICD10 Code Diagnosis Note [id number] Kristina Burnham MD [facility] ([facility]) [address] [place] [phone] 09/01/2023 09:34:15 09/01/2023 12:59:33 Adult health examination 435903644 Z00.00 Hyperlipid emia screening 384150400 Z13.220 Hypertensive disorder 38 806860 I10 Screening for malignant neoplasm of prostate 004344027 Z12.5 Erectile dysfunction 860 712655 F52.21 Bilateral arthritis of knees 3966159786 843237 M13.861 M13.862 Ulnar nerv e entrapment at elbow 050375164 G56.23 Patient does not find it bothersome enough to require interventi on at this time. Encouraged avoiding prolonged flexion at the elbow. [id number] Kristina Burnham MD [facility] ([facility]) [address] [place] [phone] 11/16/2023 10:41:13 11/16/2023 11:41:49 Bilateral osteoarthritis of knees 9668683506 07379 M17.0 Knee injections were performed for the patient. The patient did well during the procedure. There was no complicati ons. [id number] Kristina Burnham MD [facility] ([facility]) [address] [place] [phone] 03/05/2025 11:35:37 03/05/2025 12:26:11 Hypertensive disorder 74286899 I10 Continue current medication s. Continue monitoring blood pressure at home. Bilateral osteoarthritis of knees 1888274874 04305 M17.0 Patient intends to proceed with both knee replacemen ts, but he is starting with his right knee. Continue to follow with Dr. Dickens Ulnar nerv e entrapment at elbow [id number] G56.23 Nerve conduction study is going to be performed. General ex amination of patient [id number] Z00.01 Encouraged a well-perry franchesca diet and regular exercise. Health Concerns Section Related Observation LastModified by Organization Detai ls LastModified Time None Recorded Concern Status LastModified by Organization Details LastModified Time None Recorded Advance Directives Directive None Recorded Payers Insurance Date Sequence Insurance Name Policy Number Policy Schuster Covered Member ID Schuster Member ID Guarantor Name 03/05/2025 1 [facility] [id number] Manny Toney [id number] Manny Toney 03/05/2025 1 [employer] ([employer]) [id number] Manny Toney [id number] Manny Toney 03/05/2025 1 *SELF PAY* Gatito Toney
[2025-03-26] MEDS: oxyCODONE 5 mg IR Tab/Cap PO ×2 (12:59→20:07)
[2025-03-26] MEDS: chlorhexidine gluconate 0.12% Btl 473 mL 30 ML MUCOUS MEM ×3 (13:01→20:11)
[2025-03-26] MEDS: tranexamic acid 1,000 MG/100 ML PREMIX 600 MG IV (15:43)
[2025-03-26] MEDS: mupirocin oint 22 gm 1 APPLIC NASAL (18:01)
[2025-03-26] MEDS: calcium carb-vit d 600mg/400unit 1 Tablet 1 EACH PO (18:01)
[2025-03-26] MEDS: sennosides-docusate Tablet 2 TAB PO (18:01)
[2025-03-26] MEDS: HYDROmorphone 0.5 MG/0.5 ML INJ IVP (21:32)
[2025-03-26] MEDS: acetaminophen 1,000 MG/100 ML PIGGYBACK 100 MG IV (21:34)
[2025-03-27 05:36] LABS: Hematocrit 38.2 % (37-53); Hemoglobin 13.10 g/dL (11.27-16.99); Mean Corpuscular HGB Conc 34.3 g/dL (30-55); Mean Corpuscular Hemoglobin 33.2 pg (27-33); Mean Corpuscular Volume 96.7 fl (82-101); Nucleated Red Blood Cells % 0 %; Platelet Count 222 10^3/cmm (157-399); Red Blood Count 3.95 10^6/uL (3.85-5.65); White Blood Count 10.93 10^3/uL (3.29-11.43)
[2025-03-27] MEDS: acetaminophen 1,000 MG/100 ML PIGGYBACK 100 MG IV (06:04)
[2025-03-27] MEDS: ceFAZolin 2,000 MG in sodium chloride 0.9% (plus) 50 ML 100 MG IV (06:05)
[2025-03-27] MEDS: HYDROmorphone 0.5 MG/0.5 ML INJ IVP (06:10)
[2025-03-27 06:21] LABS: Anion Gap 17.2 (5-19); Blood Urea Nitrogen 22 mg/dL (8-23); Calcium 8.8 mg/dL (8.5-10.5); Carbon Dioxide 24 mmol/L (22-29); Chloride 99 mmol/L (98-107); Creatinine Clr Calc Pharmacy 123.2093; Glucose 133 mg/dL (65-115); Osmolality Calculated 287 mOsm/kg (285-295); Potassium 4.2 mmol/L (3.5-5.1); Sodium 136 mmol/L (136-145)
[2025-03-27 07:17] VITALS: BP 134/92; PULSE 65; RESP 17; TEMP 36.4; O2SAT 98
[2025-03-27] MEDS: multivitamin therapeutic Tablet 1 TAB PO (08:24)
[2025-03-27] MEDS: sennosides-docusate Tablet 2 TAB PO (08:24)
[2025-03-27] MEDS: calcium carb-vit d 600mg/400unit 1 Tablet 1 EACH PO (08:24)
[2025-03-27] MEDS: chlorhexidine gluconate 0.12% Btl 473 mL 30 ML MUCOUS MEM (08:28)
[2025-03-27] MEDS: mupirocin oint 22 gm 1 APPLIC NASAL (08:29)
--- NOTE | 2025-03-27 09:20 | P.PN_ITS ---
Subjective 2 Subjective: He reports he is feeling well, no shortness of breath, no nausea or vomiting at this time but did get somewhat nauseated after a dose of IV Dilaudid earlier for pain. Currently pain controlled. He has been using incentive spirometer doing great. Worked well with physical therapy. Vitals/I&O/Wt Last Vital Signs Temp 97.6 F 03/27/25 07:17 Pulse 65 03/27/25 07:17 Resp 17 03/27/25 07:17 BP 134/92 03/27/25 07:17 Pulse Ox 98 03/27/25 07:17 O2 Del Method Room Air 03/27/25 07:17 03/26/25 03/27/25 03/27/25 22:59 06:59 14:59 Intake Total 880 / 3310 1383.333 / 4693.333 Output Total 1200 / 1425 Balance -320 / 1885 1383.333 / 3268.333 Weight last 48 hrs Weight 104.734 kg Weight 102.058 kg Physical Exam 2 Const: COMMON NORMALS: patient oriented x3 and alert GENERAL APPEARANCE: c ooperative ORIENTATION/CONSCIOUSNESS: Yes awake HENMT: COMMON NORMALS: oropharynx normal Neck/C-Spine: COMMON NORMALS: no JVD Resp: COMMON NORMALS: normal respiratory effort and clear to auscultation bilaterally AUSCULTATION: clear to auscultation bilaterally Cardio: COMMON NORMALS: no JVD, regular rhythm, S1 normal heart sound present, S2 normal heart sound present and No murmurs present (Cardio) RHYTHM: regular rhythm HEART SOUNDS: S1 normal heart sound present and S2 normal heart sound present GI: COMMON NORMALS: Normal to inspection, nondistended, normoactive bowel sounds present, Soft to palpation and non-tender PALPATION: Yes Soft to palpation Extremity: COMMON NORMALS: no joint enlargement and no pedal edema OTHER: Post-op R knee dressing. Starting to minimally move toes BL. No edema. Neuro: COMMON NORMALS: patient oriented x3 and moves all extremities S ENSORIUM/ORIENTATION: Yes alert Skin: COMMON NORMALS: no rashes or lesions noted GENERAL SKIN EXAM: no rashes or lesions noted Urinary Catheter Management: Devlin: Cath Placed During This Visit: yes Reason for Continuing Indwelling Catheter: Perioperative Use in Selected Surgeries Urinary Catheter Date of Insertion: 03/26/25 Urinary Catheter Time of Insertion: 07:17 Data 03/27/25 03:24 03/27/25 03:24 A&P Assessment and plan 1. Status post total right knee replacement: He is doing well postoperatively. Sitting up in bed, just worked with physical therapy. Reviewed vitals, CBC, BMP. Reviewed blood counts. He did get nauseated after a dose of IV Dilaudid for pain, but currently pain is doing better. He has been started on VTE prophylaxis with Eliquis. He has been using incentive spirometer. Blood pressure is doing well 134/92. Will have him resume his usual medications at discharge. He is okay for discharge from hospice perspective, as discussed with him with follow-up with primary provider and orthopedics, pending reassessment and discharge by Ortho team. Plan: Hypertension : Blood pressures 134/92. Will have him resume his usual medications. Continue to monitor blood pressures at home. Cardiac diet. As discussed with him will benefit from cutting down or stopping EtOH intake. Caution with NSAIDs. Heavy alcohol use : Patient admits to liquor intake ~5?10 drinks daily; counseled on cardiovascular and oncologic risks. Discussed with him, advised to limit alcohol to <= 2 drinks/day. Discussed with him have started on timing folic acid and multivitamin due to the above. PDMP PDMP Reviewed: Not Reviewed Attestations 2 Medical Necessity Statement*: Returning home today. Coding Level of Care Code Acute Code for Chg Fwd Diagnoses Status post total right knee replacement Z96.651
--- NOTE | 2025-03-27 09:24 | PC.CHAP ---
Pastoral Care Encounter/Spiritual Assessment Type of Contact [] Declined overnight houseperson visit [] Patient/Family/Request visit [] Outpatient visit [] Follow-up visit [] Physician referral [] Code/Alert [x] Routine visit [] Staff referral [] Actively dying [] Patient sleeping [] Family support [] [] Out of room [] Palliative care [] [] Receiving care in room [] Pre-surgical visit [] Trauma [] Long length of stay [] ICU visit [] Other: Relational/Emotional Strength [x] Patient feels connected with others/family/visitors/staff [] Distress [] Loneliness/isolation [] Abandonment Spirituality of Patient [x] Person of Marci [] Attends Hoahaoism of their Marci [x] Believes in Prayer [] Reads Bible or Orthodoxy materials [] There are Spiritual issues to be addressed Building Services Technician Interventions [x] Prayer [x] Active listening [x] Non-anxious presence [x] Spiritual/emotional support [] Crisis/trauma care [] Spiritual counseling [] Bereavement support [] Provided bereavement packet [] Provided Bible/devotional materials [] Provided toy/stuffed animal, coloring book to patient or family member [] Provided Communion [] Anointing/[place] [] Salvation [x] Completed spiritual assessment [] Other: Impact on Illness or Injury [] Angry [] Fearful [] Anxious [] Often cries [] Exhaustion [] Unable to work [] Unable to attend alevism [] Unable to walk/stand [] Unable to read [] Unable to drive [] Unable to eat/drink [] Unable to sleep [] Unable to be with family [] Patient intubated [] Other: Summary Time spent with patient 5 min
[2025-03-27 11:25] VITALS: BP 126/84; PULSE 65; RESP 16; TEMP 36.9; O2SAT 97
--- NOTE | 2025-03-27 12:11 | P.DS_ITS ---
Discharge Providers Date of Admission: 03/26/25 10:22 Date of Discharge: March 27, 2025 Attending Provider at Admission: Alex Dickens DO Attending Provider at Discharge: Alex Dickens DO Consults: Dr. Viramontes?hospitalist Primary Care Provider: Thaddeus Burnham MD Diagnoses at Discharge Discharge Diagnosis 1. Status post total right knee replacement: Reason for Visit Reason for Visit: M17.11 Brief History: Status post right total knee arthroplasty?Drew robotic assisted Hospital Course Hospital Course Patient presented to the preoperative holding area with plan for right total knee arthroplasty after patient has been worked up in the outpatient setting for failed conservative treatment of [right] knee degenerative joint disease. Once cleared by anesthesia for surgery patient subsequently was taken back to the operative suite underwent anesthesia per anesthesia department and then subsequently underwent a [right] total knee arthroplasty. Procedure was pe rformed without any complications patient was taken to PACU in stable condition patient recovered well in PACU and then was admitted to the floor postoperatively internal medicine was consulted and on board for medical management and assistance with care. Patient received appropriate PT/OT, postoperative antibiotics, postoperative TXA, pain control, postoperative DVT prophylaxis. Elevation and ice. Patient encouraged for knee range of motion allowed weightbearing as tolerated to the operative lower extremity. Dressing was changed as needed, labs were monitored daily. Patient recovered well postoperatively and worked well and progressed well with therapy. It was determined on postoperative day 1 the patient was stable for discharge from an orthopedic standpoint and medicine. Patient was comfortable with discharge and plan was discharged home. Patient received appropriate discharge instructions as well as pain medication and DVT prophylaxis postoperatively. Given appropriate instructions for dressing management. Patient will follow-up with Dr. Dickens/orthopedics in the office in 2 weeks. All questions answered. Understand if there is any issues questions or concerns and contact the office. Physical Exam Narrative: Right knee examination: Dressing on in place, clean dry and intact. No evidence of saturation. Patient has normal postoperative swelling and tenderness to palpation to the knee. Compartments are soft compressible,'s calf soft and nontender. Sensations in tact to light touch distally. Distal pulses are palpable. Patient is able to wiggle toes as well as plantarflex and dorsiflex ankle. Urinary Catheter Management: Devlin: Cath Placed During This Visit: yes Reason for Continuing Indwelling Catheter: Perioperative Use in Selected Surgeries Urinary Catheter Date of Insertion: 03/26/25 Urinary Catheter Time of Insertion: 07:17 Discharge Data Studies Completed and Pending Completed Studies During Hospitalization Category Date Time Status XR knee RT 1-2V [id number] Routine Exams 03/26/25 09:17 Completed Pending at discharge Category Date Time Status Basic Metabolic Panel AM LABS Lab 03/28/25 04:00 Ordered Basic Metabolic Panel AM LABS Lab 03/29/25 04:00 Ordered Complete Blood Count w/Auto AM LABS Lab 03/28/25 04:00 Ordered Complete Blood Count w/Auto AM LABS Lab 03/29/25 04:00 Ordered Radiology Impressions Knee X-Ray 03/26/25 09:17 IMPRESSION: 1. There are no acute fractures. 2. Status post right knee replacement with postoperative gas density seen anteriorly on the cross-table lateral view. Laboratory Results WBC 10.93 10^3/uL (3.29-11.43) 03/27/25 03:24 RBC 3.95 10^6/uL (3.85-5.65) 03/27/25 03:24 Hgb 13.10 g/dL (11.27-16.99) 03/27/25 03:24 Hct 38.2 % (37-53) 03/27/25 03:24 MCV 96.7 fl (82-101) 03/27/25 03:24 MCH 33.2 pg (27-33) H 03/27/25 03:24 MCHC 34.3 g/dL (30-55) 03/27/25 03:24 RDW 13.2 % (12.1-15.1) 03/27/25 03:24 Plt Count 222 10^3/cmm (157-399) 03/27/25 03:24 MPV 9.3 fL (7.4-10.4) 03/27/25 03:24 Neut % (Auto) 86.4 % 03/27/25 03:24 Lymph % (Auto) 7.6 % 03/27/25 03:24 Crane % (Auto) 5.3 % 03/27/25 03:24 Eos % (Auto) 0.0 % 03/27/25 03:24 Baso % (Auto) 0.2 % 03/27/25 03:24 Neut # (Auto) 9.44 10^3/uL (1.8-7.7) H 03/27/25 03:24 Lymph # (Auto) 0.8 10^3/uL (0.8-4.8) 03/27/25 03:24 Crane # (Auto) 0.6 10^3/uL (0.2-0.9) 03/27/25 03:24 Eos # (Auto) 0.0 10^3/uL (0.0-0.8) 03/27/25 03:24 Baso # (Auto) 0.0 10^3/uL (0.0-0.1) 03/27/25 03:24 Nucleated RBC % (auto) 0 % 03/27/25 03:24 Nucleated RBCs # 0.0 /100WBC 03/27/25 03:24 Sodium 136 mmol/L (136-145) 03/27/25 03:24 Potassium 4.2 mmol/L (3.5-5.1) 03/27/25 03:24 Chloride 99 mmol/L (98-107) 03/27/25 03:24 Carbon Dioxide 24 mmol/L (22-29) 03/27/25 03:24 Anion Gap 17.2 (5-19) 03/27/25 03:24 BUN 22 mg/dL (8-23) 03/27/25 03:24 Creatinine 0.8 mg/dL (0.7-1.2) 03/27/25 03:24 GFR Calculation 98.3 mL/min (90-130) 03/27/25 03:24 Glucose 133 mg/dL (65-115) H 03/27/25 03:24 Calculated Osmolality 287 mOsm/kg (285-295) 03/27/25 03:24 Calcium 8.8 mg/dL (8.5-10.5) 03/27/25 03:24 Blood Type AB Positive 03/26/25 06:15 Rho(D) Type Rh positive 03/26/25 06:15 Antibody Screen Negative 03/26/25 06:15 Vitals Last Vital Signs Temp 98.4 F 03/27/25 11:25 Pulse 65 03/27/25 11:25 Resp 16 03/27/25 11:25 BP 126/84 03/27/25 11:25 Pulse Ox 97 03/27/25 11:25 O2 Del Method Room Air 03/27/25 11:25 Discharge Plan Discharge Patient Disposition: Home Condition: Stable Prescriptions: New Eliquis 2.5 mg tablet 2.5 mg PO BID 14 Days Qty: 28 0RF folic acid 1 mg Tablet 1 mg PO DAILY Qty: 90 0RF multivitamin with folic acid [Thera] 400 mcg Tablet 1 tab PO DAILY Qty: 90 0RF thiamine mononitrate (vit B1) [Vitamin B-1 (mononitrate)] 100 mg Tablet 100 mg PO DAILY Qty: 90 0RF cefadroxil 500 mg capsule 500 mg PO BID 7 Days Qty: 14 0RF oxycodone 5 mg tablet 5 mg PO Q6H PRN (Reason: pain postop) 7 Days Qty: 28 0RF Continued losartan 100 mg tablet 100 mg PO DAILY potassium chloride 10 mEq tablet extended release 10 meq PO DAILY hydrochlorothiazide 25 mg tablet 25 mg PO DAILY amlodipine 5 mg tablet 5 mg PO DAILY Discontinued meloxicam 7.5 mg tablet 7.5 mg PO DAILY No Action methocarbamol 500 mg tablet 500 mg PO TID PRN (Reason: pain and muscle spasms) 14 Days Qty: 42 0RF 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 OK for DC: Hospitalist Discharge Order = DC NOW: Discharge Order (Routine); Ordered 03/27/25 Ordered By: Alex Dickens Other Ambulatory Orders: Physical Therapy Eval and Treat Outpatient (Order) Timeframe: 1 Day Facility: [facility] - Location: Physical Therapy [facility] Ordered By: Alex Dickens Referrals: [facility] Outpatient Therapy [Outside] Thaddeus Burnham MD [Primary Care Provider, Family Practice] - 04/05/25 3:45 pm Alex Dickens DO [Physician, Orthopedics] - 04/10/25 3:00 pm Discharge Diet: Cardiac Discharge Activity: Limit activity as instructed and Use walker/crutches as instructed Patient Instructions: Oxycodone, Rapid Release (By mouth), Apixaban (By mouth), Acute Wound Care (DC), Total Knee Replacement (GEN), Post Anesthesia Care Activity Restrictions/Additional Instructions: Discharge plan Keep incisions clean dry and intact, leave Silverlon bandage dressings on in place for 7 days after that may rinse incisions with warm soapy water pat dry and redress with a dry dressing. Patient may weight-bear as tolerate to the operative extremity Utilize walker as needed Encourage knee range of motion Ice and elevate as needed for pain and swelling Take pain medication as prescribed Take antinausea medication as needed Take antibiotic as prescribed for antibiotic infection prophylaxis Pain medication can cause constipation. take [id number] stool softeners and or MiraLAX. Take prescribed Eliquis twice daily for the next 14 days for blood clot prevention May supplement for pain with Tylenol [id number] as needed(1000 mg every 8 hours-do not exceed more than 3000mg in 24-hour period) No baths or soaks Follow-up in the orthopedic office in 2 weeks Contact the office for any questions or concerns As discussed, please reduce alcohol intake, avoid more than 2 drinks a day due to increase of risks as discussed. Follow-up with your primary doctor. You are as discussed also started on thiamine, folic acid, multivitamin. Continue to monitor your blood pressures twice daily, continue antihypertensives, cardiac diet. Seek medical attention in case of any worsening or new concerning symptoms. Discharge Attestations Time Spent in Discharge Care*: less than 30 min Quality Metrics Clinical Quality Measures [ No reported AMI, CVA or VTE this stay] Coding Level of Care Code Acute Code for Chg Fwd Diagnoses Status post total right knee replacement Z96.651 Time Spent (min) 25
== END 2025-03-27 13:25 | disposition home or self-care (01) ==
PROVIDERS: Physician Assistant; Admitting Provider Student in an Organized Health Care Education/Training Program; PCP Family Medicine; Visit Provider Student in an Organized Health Care Education/Training Program
PROC: 8E0Y0CZ Robotic Assisted Procedure of Lower Extremity, Open Approach (ICD-10-PCS; CPT 27447; principal; 2025-03-26 07:00)
DX: M17.11 Unilateral primary osteoarthritis, right knee (principal); I10 Essential (primary) hypertension
CPT/HCPCS: 27447; 20985; 36415; 51702; 73560; 80048; 85025; 86850; 86900; 97116; 97161; 97165; 97530; A4216; C1713; C1776; G0378; J0131; J0169; J0690; J1171; J1885; J2250; J2704; J2795; J3010; J7030; J7120; J9999; L8699

== ENCOUNTER 2025-03-30 07:22 | Outpatient (RCR) | payer OTHER, SELFPAY | END 2025-04-29 23:59 | disposition home or self-care (01) | LOC: SPT 07:22 | PROVIDERS: PCP Family Medicine; Visit Provider Student in an Organized Health Care Education/Training Program | DX: Z47.1 Aftercare following joint replacement surgery (principal); Z96.651 Presence of right artificial knee joint | CPT/HCPCS: 97110; 97161 ==

== ENCOUNTER → 2025-04-10 15:17 | Outpatient (BNVA) | payer OTHER, SELFPAY | PROVIDERS: PCP Family Medicine; Visit Provider Physician Assistant | DX: Z96.651 Presence of right artificial knee joint (principal) | CPT/HCPCS: 73560; 73565 ==

== ENCOUNTER 2025-04-30 05:00 | Outpatient (RCR) | payer OTHER, SELFPAY | END 2025-05-29 23:59 | disposition home or self-care (01) | LOC: SPT 05:00 | PROVIDERS: PCP Family Medicine; Visit Provider Student in an Organized Health Care Education/Training Program | DX: Z47.1 Aftercare following joint replacement surgery (principal); Z96.651 Presence of right artificial knee joint | CPT/HCPCS: 97110 ==

== ENCOUNTER → 2025-05-01 07:49 | Outpatient (BNVA) | payer OTHER, SELFPAY | PROVIDERS: PCP Family Medicine; Visit Provider Physician Assistant | DX: Z98.890 Other specified postprocedural states (principal); Z96.651 Presence of right artificial knee joint | CPT/HCPCS: 73560; 73565 ==

== ENCOUNTER → 2025-05-22 15:32 | Outpatient (BNVA) | payer OTHER, SELFPAY | PROVIDERS: PCP Family Medicine; Visit Provider Student in an Organized Health Care Education/Training Program | DX: Z96.651 Presence of right artificial knee joint (principal); Z01.89 Encounter for other specified special examinations | CPT/HCPCS: 73560; 73565 ==

== ENCOUNTER 2025-05-30 05:00 | Outpatient (RCR) | payer OTHER, SELFPAY | END 2025-06-29 23:59 | disposition home or self-care (01) | LOC: SPT 05:00 | PROVIDERS: PCP Family Medicine; Visit Provider Student in an Organized Health Care Education/Training Program | DX: Z47.1 Aftercare following joint replacement surgery (principal); Z96.651 Presence of right artificial knee joint | CPT/HCPCS: 97110 ==

== ENCOUNTER → 2025-07-11 15:35 | Outpatient (BNVA) | payer OTHER, SELFPAY | PROVIDERS: PCP Family Medicine; Visit Provider Student in an Organized Health Care Education/Training Program | DX: Z01.818 Encounter for other preprocedural examination (principal) | CPT/HCPCS: 36415; 80053; 81001; 85025 ==

== ENCOUNTER 2025-07-17 16:52 | Outpatient (CLI) | payer OTHER, SELFPAY ==
--- NOTE | 2025-07-17 17:15 | CT_ITS ---
WS: [id number] CT LEFT knee, noncontrast HISTORY: surgical planning TECHNIQUE: Protocol for JOHANA total knee replacement has been obtained. This includes axial imaging through the LEFT hip, LEFT knee and LEFT ankle. DLP: 1066.87 mGy.cm COMPARISON: Knee radiograph 05/22/2025 LEFT hip: Mild narrowing of the SI joint. Very minimal narrowing of the LEFT hip. No destructive bone lesions. LEFT inguinal hernia containing a loop of descending colon. No obstruction. No fluid in the hernia sac. LEFT knee: Moderate to severe tricompartment osteoarthritis. Large marginal osteophytes along the joint lines. No acute fracture. Small joint lesion. Scattered plaque in the popliteal artery. LEFT ankle: No acute process. CT/CT knee LT [facility] [id number] IMPRESSION: CT imaging provided for [facility] robotic total knee replacement. LEFT inguinal hernia containing a loop of nondilated descending colon.
== END 2025-07-17 16:53 | disposition home or self-care (01) ==
LOC: RAD 16:52
PROVIDERS: PCP Family Medicine; Visit Provider Student in an Organized Health Care Education/Training Program
DX: M17.12 Unilateral primary osteoarthritis, left knee (principal)
CPT/HCPCS: 73700

== ENCOUNTER 2025-07-23 15:27 | Observation (INO) | payer OTHER, SELFPAY ==
[2025-07-23] VITALS (22 sets, daily range): BP systolic 95–132; BP diastolic 59–89; PULSE 68–95; RESP 15–24; TEMP 36.2–36.9; O2SAT 92–97; BMI 30.3
--- NOTE | 2025-07-23 09:28 | W.PM.OPSUD ---
Surgery/Procedure H&P Update DATE OF PROCEDURE: July 23, 2025 DATE H&P PERFORMED: 07/11/25 H&P UPDATE INFORMATION: I have reviewed H&P completed within last 30 days, I have examined patient prior to procedure and No changes to prior documentation CHANGES TO PREVIOUS DOCUMENTATION: Plan to proceed to the OR today for left total knee arthroplasty?Drew robotic assisted is cleared the preoperative clearance process-clearance note from his primary provider reviewed his labs he is cleared to proceed with surgical intervention. At this point in time no changes to health since last office visit. Please refer to anesthesia's preoperative evaluation for heart and lung findings. Patient does have a lateral knee incision from a procedure back when he was a kid we will just plan on doing a medial parapatellar approach and just treat the incision medially to increase the space between the old incision however this is greater than 20 years out. Patient understands and agrees with current plan. All questions answered. PREOP DIAGNOSIS: Left knee DJD PRIMARY INDICATION FOR PROCEDURE: Left knee DJD PLANNED PROCEDURE: Operation Date: 07/23/25 11:30 Proposed Procedures p LEFT Drew Robot Total Knee Arthroplasty(Left) - Alex Dickens DO
[2025-07-23] MEDS: acetaminophen 1,000 MG/100 ML PIGGYBACK 400 MG IV ×3 (09:49→23:17)
--- NOTE | 2025-07-23 10:03 | PC.NURSE ---
Block to Left thigh completed at bedside under ultrasound by Dr. Jamison. Pt vital signs 70 pulse, 115/76, 94% RA, pt tolerated well.
[2025-07-23 10:07] LABS: Hematocrit 46.1 % (37-53); Hemoglobin 16.10 g/dL (11.27-16.99); Mean Corpuscular HGB Conc 34.9 g/dL (30-55); Mean Corpuscular Hemoglobin 32.3 pg (27-33); Mean Corpuscular Volume 92.4 fl (82-101); Nucleated Red Blood Cells % 0 %; Platelet Count 244 10^3/cmm (157-399); Red Blood Count 4.99 10^6/uL (3.85-5.65); White Blood Count 5.36 10^3/uL (3.29-11.43)
--- NOTE | 2025-07-23 10:07 | ANES.PREANE2 ---
Pre-Anesthetic Assessment Height/Weight: Height 1.85 m Weight 104.326 kg Temp Pulse Resp BP Pulse Ox O2 Del Method 97.7 F 74 18 132/89 97 Room Air 07/23/25 09:33 07/23/25 09:33 07/23/25 09:33 07/23/25 09:33 07/23/25 09:33 07/23/25 09:33 Preop Diagnosis: Left knee DJD Operation Date: 07/23/25 11:30 Proposed Procedures p LEFT Drew Robot Total Knee Arthroplasty(Left) - Alex Dickens DO Familial anesthetic complications: None Was Beta Billy taken within 24 hours: N/A Was Clonidine taken within 24 hours: N/A Last intake: Intake Last Liquid Date 07/22/25 Last Liquid Time 20:00 Last Solid Date 07/22/25 Last Solid Time 20:00 Social No alcohol and No tobacco Exam alert, oriented x 3, clear to auscultation bilaterally and regular rate & rhythm Airway Mallampati: Class II CV/HEM Hypertension Anesthetic Plan ASA status: 2 Anesthesia: Regional (specify below) Risk of > 500 ml blood loss (7ml/kg in children): No Medications/Allergies Home Medications ?Medication ?Instructions ?Recorded ?Confirmed ?Last Taken ?Type hydrochlorothiazide 25 mg tablet 25 mg PO DAILY 04/15/21 07/23/25 07/22/25 History losartan 100 mg tablet 100 mg PO DAILY 04/15/21 07/23/25 07/22/25 History potassium chloride 10 mEq 10 meq PO DAILY 04/15/21 07/23/25 07/22/25 History tablet,extended release amlodipine 5 mg tablet 5 mg PO DAILY 09/16/21 07/23/25 07/23/25 History meloxicam 15 mg tablet 15 mg PO DAILY 07/19/25 07/19/25 07/17/25 History Allergies Allergy/AdvReac Type Severity Reaction Status Date / Time No Known Allergies Allergy Verified 07/11/25 14:31 Current Medications Generic Name Dose Route Start Last Admin Trade Name Freq PRN Reason Stop Dose Admin Sodium Chloride 1,000 mls @ 30 mls/hr 07/23/25 09:30 07/23/25 09:49 Sodium Chloride 0.9% IV 07/24/25 09:29 30 mls/hr .Q24H PILAR Administration PFSH Anesthesia Medical History (Updated 07/15/25 @ 21:53 by Alex Dickens DO) Right knee DJD Hypertension Surgical History History of open reduction and internal fixation (ORIF) procedure right femur History of left knee surgery Social History Smoking and tobacco/nicotine status: never used tobacco/nicotine Alcohol intake: current Alcohol intake frequency: 3 or more drinks per day Alcohol type: hard liquor Substance/Drug Use: never Data Anesthesia 07/23/25 09:40 07/23/25 09:40 Anesthesia Procedures Nerve Block Nerve Block 1: Main Anesthesia: spinal anesthesia block Time Out Performed: Yes Consent: requested by attending/covering physician, from patient, from other, risks and benefits reviewed and patient agrees to proceed Nerve block location: adductor canal (L) Anesthesia monitors applied: pulse oximetry, EKG, BP cuff and oxygen Nerve block position: supine Anesthetic Used: ropivicaine 0.5% (30 ml) and with decadron (4 mg) Ultrasound used to: recognize landmarks and visualize and ID femerol nerve Nerve Stimulator Used?: No Interscalene/Femoral BLK: 4 stimuplex 21 g needle used for position and inplane approach, visualize local anesthetic spread and no vascular puncture identified Injection: neg aspiration of heme Patient Tolerated Procedure: well Complications: none
[2025-07-23 10:30] LABS: Anion Gap 13.9 (5-19); Blood Urea Nitrogen 17 mg/dL (8-23); Calcium 9.0 mg/dL (8.5-10.5); Carbon Dioxide 23 mmol/L (22-29); Chloride 102 mmol/L (98-107); Creatinine Clr Calc Pharmacy 122.9854; Glucose 109 mg/dL (65-115); Osmolality Calculated 282 mOsm/kg (285-295); Potassium 3.9 mmol/L (3.5-5.1); Sodium 135 mmol/L (136-145)
[2025-07-23] MEDS: ceFAZolin 2,000 MG in sodium chloride 0.9% (plus) 50 ML 100 MG IV ×3 (12:00→23:56)
--- NOTE | 2025-07-23 12:02 | XRR_ITS ---
PROCEDURE INFORMATION: Exam: XR Left Knee Exam date and time: 07/23/2025 3:25 PM Age: 60 years old Clinical indication: Device placement; Joint replacement hardware; Prior surgery; Surgery date: Post-operative (0-2 days); Surgery type: L tka; Additional info: Post L tka, do in pacu TECHNIQUE: Imaging protocol: Radiologic exam of the left knee. Views: 1 or 2 views. COMPARISON: 1. CT knee LT [facility] [id number] 07/17/2025 5:10 PM 2. CR XR knees AP WB w BI lmt ORTH 01/30/2025 10:46 AM FINDINGS: Bones/joints: Status post left total knee arthroplasty. Prosthesis appears to be in satisfactory position. No postprocedure fracture. Soft tissues: Expected postsurgical changes are present within the overlying soft tissues. Vasculature: Arterial vascular calcifications are present posterior to the knee. XR/XR knee LT 1-2V [id number] IMPRESSION: Status post uncomplicated left total knee arthroplasty. Prosthesis appears to be in satisfactory position. No postprocedure fracture.
[2025-07-23] MEDS: tranexamic acid 1,000 mg/10mL SDV 1000 MG IV (12:04)
[2025-07-23] MEDS: ROPivacaine 0.2% Premix 100 mL 200 MG INTRA-ARTI (12:55)
[2025-07-23] MEDS: tranexamic acid 1,000 mg/10mL SDV 1000 MG XX (12:55)
--- NOTE | 2025-07-23 14:01 | P.OP_ITS ---
Operative Report Date of procedure: July 23, 2025 Surgeon: Alex Dickens DO Winchman/Crane Operator: Kumar Dickens PA-C: PA was necessary for assistance in this case with leg positioning retraction and protection of neurovascular structures as well as assistance in implantation wound closure and dressing application. Procedure: Preoperative diagnosis: Left knee degenerative joint disease Post-op diagnosis: Same Procedure done: Left total knee arthroplasty, cemented?robotic assisted Drew Implants: Banks triathlon size 7 femur CR cemented?left Banks triathlon size?6 tibia universal baseplate cemented Banks triathlon symmetric patella size 36 mm Kelly triathlon polyethylene 12 mm Surgeon: Alex Dickens DO Estimated blood?loss: 40 mL Tourniquet 73 minutes IV fluids: 1500 mL Urine output: 100 mL Complications: None Condition: stable Disposition: floor Brief History: Patient is a 60-year-old male with with chronic?left knee degenerative joint disease.? Patient has been worked up in the outpatient setting in the orthopedic office at this point time through shared decision making given? phld-du-axee arthritis as well as failed conservative treatment, and pt would?like to proceed with a?left total knee arthroplasty.? Through shared decision making elected to proceed with surgical intervention for?left total knee arthroplasty.? We talked about continued conservative treatment and surgical intervention as far as the risk benefits complications alternatives surgical and nonsurgical treatment options.? At this point time understanding patient risks with surgery he agrees to proceed with surgical intervention.? Once again? risk with surgery include but are not?limited to make it better make it worse blood clot, heart attack, stroke, on the table, infection, injury to nerves or vessels, persistent pain, arthrofibrosis, implant failure.? Understanding these risks patient agrees to proceed with surgical intervention consent was obtained in the preoperative holding area.? All questions answered. Procedure: Patient was seen and evaluated in the preoperative holding area.? Consent was reviewed and signed with patient with plan for?left total knee arthroplasty.? All questions answered.? Correct extremity marked.? Patient seen and evaluated by the anesthesia department and once cleared for surgery was taken back to the operative suite.? Patient was placed into a supine position on the OR table.? All bony prominences were well-padded.? Patient was appropriately secured to the bed.? Patient underwent anesthesia per the anesthesia department.? Patient received anesthesia and? Devlin catheter was placed.? A nonsterile tourniquet was applied to the?left thigh.? At this point in time a final timeout performed.? Patient received appropriate preoperative antibiotics and TXA. Next the?left?lower extremity was then prepped and draped in standard orthopedic fashion. Esmarch tourniquet was used exsanguinate the?left?lower extremity.? Tourniquet was insufflated to 250 mmHg. A standard anterior incision was made over midline of the knee.? Sharp scalpel excision through skin and subcutaneous tissue full-thickness skin flaps were made.? Fascia was elevated off of the extensor retinaculum was stable with medial parapatellar arthrotomy was then made.? The performed standard sequential releases..? Immediately on entry into the joint patient was found to have severe eburnated bone and tricompartmental arthritic changes noted.? With significant osteophyte formation.? Next the the patella was then stuffed and the knee was then flexed.?? Kateryna was placed superiorly around the anterior aspect of the femur this was freed of synovium and I subsequently then placed by 2 femur pins to establish my femur arrays for the Drew robot.? These were then placed bicortically and? femur array was then appropriately secured with appropriate visualization.? Next attention was turned towards the tibial rays.? These were then drilled sequentially bicortically in parallel fashion and intraincisional.? I then placed my guide as well as my tibial array on in place.? This was appropriately secured and had excellent visualization with the Drew robot.? Next the tibial checkpoint as well as femur checkpoint were then placed.? At this point time I then subsequently established my head center as well as my medial?lateral malleoli as well as my checkpoints.? Next utilizing standard Drew technology I then mapped out the appropriate points and confirmation points around the femur as well as the tibia in standard fashion.? Once this was then d one I then removed all osteophytes in preparation for dynamic testing.? All osteophytes were removed as well as I removed the ACL and the PCL was excised due to its significant tearing and degeneration noted.? At this point time the knee was brought into full extension and we performed our standard evaluation of our gap balancing stressing his?ligaments and extension as well as flexion appropriate adjustments were made to have appropriate gap balancing in both flexion and extension.? This plan for final cuts. We were able to correct patient's valgus deformity to patient's ligamentous tolerances. We get a preoperative plan evaluating our implants which was a size 7 femur and a size 6 tibia.? Next we brought in the Drew robot and sequentially made our femur cuts.? All excess bony cuts were then removed.? Finally we made our tibial cut.? Once this was done a standard PCL retractor was then placed into this position I excised the medial and?lateral meniscus.? The tibial cut was then subsequently removed all excess bony debris was removed.? I then utilized a?lamina signal repairer and remove the posterior osteophytes.? At this point time sized the tibia and confirmed this was a size 6.? I utilized our blunt probe to establish rotation of tibial implant.? Once this was done I then placed my tibia size 6 trial in appropriate position and then subsequently placed tibial pins to hold this into place, then trialed up to a size 12 mm poly as well as a size 7 femur which was appropriately impacted in place knee was then subsequently brought into extension. Trials were then assessed,?patient was stable varus valgus stress in extension. There was some tightness in flexion laterally due to patient's chronic valgus deformity I then subsequently performed a standard popliteal release which then created a symmetric balanced flexion gap with a size 12 poly. At this point in time, at the end of my trials this was stable with varus valgus stress in extension as well as had symmetrical translation when brought into flexion demonstrating symmetrical gaps. I had excellent balance gaps in flexion and extension with varus and valgus stresses.? At this point I was satisfied with these implants these were then verified and opened on the back table size 6 tibia, size 7 femur,? size 12 mm polythickness.? We did confirm appropriate gap balancing and stresses as well as alignment utilizing? [employer] and were satisfied with this plan.? ?At this point time with my trials in place I then towel clip the patella everted this made appropriate measurements subsequently utilizing freehand technique performed by patellar resurfacing this was confirmed to be appropriate resection and subsequently sized to be a 36 mm symmetric.? My drill peg guides were then clamped and appropriate position and appropriate position in the patella for appropriate tracking and parallel with the joint.? Pegs were drilled trial implant was placed and the knee was then subsequently ranged and found to have excellent patellar tracking.? Femur pegs were then drilled.? At this point time all of our trial implants were removed.? All checkpoints as well as guidepins and arrays were removed and appropriate counts made.? Satisfied with our tibial placement rotation I then utilized the keel punch and prepped the tibia.? The wound bed? was thoroughly irrigated and dried and prepped for cementation.? Cement was mixed on the back table.? Once cement was ready this was then covered onto the tibia and the tibial baseplate was then impacted and all excess cement was removed.? Next the polyethylene was then impacted into place on the tibial baseplate.? Next cement was placed onto the femur as well as under the femur implants and impacted in to place and all excess cement was extruded and removed.? Knee was taken into full extension? to clear all excess cement was removed.? Warm saline was placed over the joint.? I then towel clip patella and dried for cementation. cemented the patella into place.? This was a ll clamped and the cement was allowed to cure.? Thorough irrigation performed with pulse?lavage.? I then placed my periarticular injection while the cement was curing.? Once cured the knee was taken through range of motion and had excellent stability and gaps were balanced in flexion and extension.? Tourniquet was then deflated. hemostasis satisfactory with electrocautery.? Next I then subsequently closed the capsule with Ethibond suture as well as a running strata fix suture.? Knee was then taken through range of motion 30 times.? Next the skin was then closed in?layered fashion of running stratifix sutures of deep and subcutenous tissue and skin.? ?closed in flexion and Prineo glue was then placed over the incision this allowed to cure.? Incision was covered with Silverlon, with ABDs soft roll and Fabián wrap.? Patient was then awakened from anesthesia and taken to PACU in stable condition. Disposition: Patient taken to PACU in stable condition will be admitted to the floor for pain control PT/OT weight-bear as tolerated?left?lower extremity dressing changes as needed, DVT prophylaxis. Pain control. Patient will receive appropriate postoperative antibiotics. patient will be seen today by the internal medicine team for medical management.? Patient will follow up with the office in 2 weeks.? Patient understands agrees with current plan.? All questions answered.
--- NOTE | 2025-07-23 14:01 | W.PM.BPON ---
Date of Procedure: 07/24/2025 Surgeon: Alex Dickens DO [employer] Counselors(s): Kumar Dickens PA-C Procedure(s) performed: Left total knee arthroplasty?Drew robotic assisted Findings of the procedure(s): Underwent procedure as planned without issues or complications taken to recovery stable condition. Estimated blood loss: 40 mL Specimen(s) removed: Tibia femur and patellar bone cuts removed Post-operative diagnosis: Left knee DJD
--- NOTE | 2025-07-23 14:20 | PM.PACU ---
PACU note Narrative: Patient is a 60-year-old male that just underwent a left total knee arthroplasty. Pt transferred to PACU in stable condition. Dressing is dry. pt is awake and alert. Distal pulses are palpable toes are warm and well-perfused. Cap refill is normal and under 2 seconds. Unable to perform any further motor or sensory assessment on lower leg due to residual spinal block. Pain is controlled. Exam: awake Disposition: admitted
[2025-07-23] MEDS: chlorhexidine gluconate 0.12% Btl 473 mL 30 ML MUCOUS MEM ×2 (16:46→23:56)
[2025-07-23] MEDS: calcium carb-vit d 600mg/400unit 1 Tablet 1 EACH PO (16:46)
[2025-07-23] MEDS: sennosides-docusate Tablet 2 TAB PO (16:46)
[2025-07-23] MEDS: mupirocin oint 22 gm 1 APPLIC NASAL (16:46)
[2025-07-23] MEDS: tranexamic acid 1,000 MG/100 ML PREMIX 600 MG IV (16:49)
[2025-07-23] MEDS: oxyCODONE 5 mg IR Tab/Cap PO (17:11)
--- NOTE | 2025-07-23 19:45 | PM.CONSULT ---
Providers/Reason For Consult Consulting Physician/Specialty*: Orthopedic surgery Reason for Consult*: Medical management Requesting Physician: Dr. Alex Dickens Attending Physician: Alex Dickens DO Primary Care Provider: Thaddeus Burnham MD History of Present Illness History of Present Illness Manny Toney is a 60 year old male with PMH of HTN and severe left knee DJD. He has experienced progressive pain, functional decline and failed conservative therapy. Per records from orthopedic surgery patient has koau-[id number]-dujy changes consistent with end-stage osteoarthritis of the affected knee. Today, 07/23/2025, and elective left total knee arthroplasty. Hospitalist service is being consulted for management of patient's underlying medical conditions. Patient denies chest pain, shortness of breath and dizziness. He reports normal appetite with adequate oral intake. Confirms presence of flatus. Has not had a bowel movement or been out of bed to work with PT. He reports increasing pain in the operative knee, stating it's starting to talk to me. At home he typically takes meloxicam for pain. Earlier today received oxycodone, tramadol, ketorolac and hydromorphone for pain. With exception of pain at time evaluation patient reports doing well. Patient's pertinent medical history is significant for hypertension. He notes his blood pressure to be well-controlled with BP meds (amlodipine, losartan, HCTZ ). Medications/Allergies Home Medications ?Medication ?Instructions ?Recorded ?Confirmed ?Last Taken ?Type hydrochlorothiazide 25 mg tablet 25 mg PO DAILY 04/15/21 07/23/25 07/22/25 History losartan 100 mg tablet 100 mg PO DAILY 04/15/21 07/23/25 07/22/25 History potassium chloride 10 mEq 10 meq PO DAILY 04/15/21 07/23/25 07/22/25 History tablet,extended release amlodipine 5 mg tablet 5 mg PO DAILY 09/16/21 07/23/25 07/23/25 History meloxicam 15 mg tablet 15 mg PO DAILY 07/19/25 07/19/25 07/17/25 History Allergies Allergy/AdvReac Type Severity Reaction Status Date / Time No Known Allergies Allergy Verified 07/11/25 14:31 Current Medications Generic Name Dose Route Start Last Admin Trade Name Freq PRN Reason Stop Dose Admin Calcium Carbonate 1 each 07/23/25 17:00 07/23/25 16:46 Calcium Carb-Vit D 600mg/400unit 1 Tablet PO 1 each BID PILAR Administration Chlorhexidine Gluconate 30 ml 07/23/25 17:00 07/23/25 16:46 Chlorhexidine Gluconate 0.12% Btl 473 Ml MUCOUS MEM 30 ml QID PILAR Administration Lactated Ringer's 1,000 mls @ 100 mls/hr 07/23/25 15:36 07/23/25 16:47 Lactated Ringers IV 100 mls/hr .Q10H PILAR Administration Acetaminophen 1,000 mg in 100 mls @ 400 mls/hr 07/23/25 15:36 07/23/25 17:08 Acetaminophen IV 07/24/25 07:50 Infused Q8H PILAR Infusion Cefazolin Sodium 2,000 mg/ 50 mls @ 100 mls/hr 07/23/25 15:36 07/23/25 17:21 Sodium Chloride IV 07/24/25 08:05 Infused Q8H PILAR Infusion Protocol Mupirocin 1 applic 07/23/25 17:00 07/23/25 16:46 Mupirocin Oint 22 Gm NASAL 07/28/25 16:59 1 applic BID PILAR Administration Protocol Oxycodone HCl 5 mg 07/23/25 15:36 07/23/25 17:11 Oxycodone 5 Mg Ir Tab/Cap PO 5 mg Q4H PRN Administration MODERATE PAIN Polysaccharide Iron Complex 150 mg 07/23/25 18:00 07/23/25 16:46 Iron Polysaccharide Complex 150 Mg Capsule PO 150 mg BIDWM PILAR Administration Senna/Docusate Sodium 2 tab 07/23/25 17:00 07/23/25 16:46 Sennosides-Docusate Tablet PO 2 tab BID PILAR Administration PFSH Acute PFSH: Medical History Right knee DJD Hypertension Surgical History History of open reduction and internal fixation (ORIF) procedure right femur History of left knee surgery Social History Smoking and tobacco/nicotine status: never used tobacco/nicotine Alcohol intake: current Alcohol intake frequency: 3 or more drinks per day Alcohol type: hard liquor Substance/Drug Use: never Vitals/I&O/Wt Last Vital Signs Temp 97.7 F 07/23/25 19:45 Pulse 82 07/23/25 19:45 Resp 16 07/23/25 19:45 BP 124/64 07/23/25 19:45 Pulse Ox 93 07/23/25 19:45 O2 Del Method Room Air 07/23/25 19:45 07/23/25 07/23/25 07/23/25 06:59 14:59 22:59 Intake Total 550 / 550 767.5 / 1317.5 Output Total 140 / 140 300 / 440 Balance 410 / 410 467.5 / 877.5 Weight last 48 hrs Weight 104.326 kg Physical Exam Narrative: Constitutional: NAD Neuro: AOx3 Head: NC/AT Eyes: PERRLA, EOMI Ears: Normal external ears. Hearing intact to normal voice. Nose: Normal external nose. No epistaxis. Throat: MMM Respiratory: CTAB. No accessory muscle use. On room air. Cardiovascular: Regular rate and rhythm Extremities: Edema 1+ LLE, DP pulses palpable Gastrointestinal: Soft. NT. ND. +BS Genitourinary: No branch catheter Musculoskeletal: Expected postoperative swelling around the knee noted, mild. Dressing CDI. Sensation intact to light touch. Brisk capillary refill. Patient able to wiggle toes. Limited ROM of the left knee consistent with immediate postoperative status Urinary Catheter Management: Branch: Cath Placed During This Visit: yes Reason for Continuing Indwelling Catheter: Perioperative Use in Selected Surgeries Urinary Catheter Date of Insertion: 07/23/25 Urinary Catheter Time of Insertion: 12:00 Data 07/23/25 09:40 07/23/25 09:40 Other Labs: Most recent labs reviewed, 07/23/25 0940 Hemogram WBC 5.36 RBC 4.99 PLT 244 HGB 16.1 HCT 46.1 Chemistry Na 135 K 3.9 Cl 102 Ca 9.0 Glu 109 CO2 23 AG 13.9 Cr 0.8 eGFR 98.3 CBC and basic metabolic panel reviewed without overt abnormalities Other data: XR KNEE FINDINGS: Bones/joints: Status post left total knee arthroplasty. Prosthesis appears to be in satisfactory position. No postprocedure fracture. Soft tissues: Expected postsurgical changes are present within the overlying soft tissues. Vasculature: Arterial vascular calcifications are present posterior to the knee. Impression: Status post uncomplicated left total knee arthroplasty. Prosthesis appears to be in satisfactory position. No post-procedure fracture. A&P Assessment and plan 1. Osteoarthritis of left knee, unspecified osteoarthritis type: 2. Essential (primary) hypertension: Plan: # Left knee DJD, end-stage s/p left knee arthroplasty 07/23/2025 - ortho primary and managing - post-operative DVT prophylaxis with Eliquis 2.5 mg BID, to start 07/24/25, ortho has ordered - pain control, his current regimen includes Tylenol 1000 mg IV Q8H x3 then stop Hydromorphone 0.5 mg IV Q4H prn Ketorolac 15 mg IV Q6H prn Oxycodone IR 5 mg PO Q4H prn Tramadol 50 mg PO Q4H prn - bowel regimen - incentive spirometer - PT/OT already consulted - CBC, BMP already ordered for 07/24 # Primary HTN BP soft earlier in the day, now improving - Continue monitoring BP - Hold home BP meds at this time PDMP PDMP Reviewed: Not Reviewed Consult Attestations Medical Necessity Statement: Medical consultation is being pursued due to patient's comorbid conditions, postoperative physiologic risks, need for daily medical decision making, and need for monitoring of blood pressure, electrolytes and renal function following arthroplasty. The complexity of care exceeds what can be safely managed by the surgical service alone, meeting necessity criteria for co-management. Coding Level of Care Code 72402 Diagnoses Osteoarthritis of left knee, unspecified osteoarthritis type M17.12 Osteoarthritis type: unspecified Essential (primary) hypertension I10
[2025-07-24] VITALS (10 sets, daily range): BP systolic 113–130; BP diastolic 74–84; PULSE 68–80; RESP 16–20; TEMP 36.6–36.8; O2SAT 93–97
[2025-07-24] MEDS: oxyCODONE 5 mg IR Tab/Cap PO ×4 (02:59→16:47)
[2025-07-24] MEDS: calcium carb-vit d 600mg/400unit 1 Tablet 1 EACH PO ×2 (04:19→16:00)
[2025-07-24] MEDS: multivitamin therapeutic Tablet 1 TAB PO (04:19)
[2025-07-24] MEDS: sennosides-docusate Tablet 2 TAB PO ×2 (04:20→16:00)
[2025-07-24 06:14] LABS: Hematocrit 37.2 % (37-53); Hemoglobin 12.90 g/dL (11.27-16.99); Mean Corpuscular HGB Conc 34.7 g/dL (30-55); Mean Corpuscular Hemoglobin 32.8 pg (27-33); Mean Corpuscular Volume 94.7 fl (82-101); Nucleated Red Blood Cells % 0 %; Platelet Count 214 10^3/cmm (157-399); Red Blood Count 3.93 10^6/uL (3.85-5.65); White Blood Count 10.95 10^3/uL (3.29-11.43)
[2025-07-24 06:35] LABS: Anion Gap 13.9 (5-19); Blood Urea Nitrogen 18 mg/dL (8-23); Calcium 8.2 mg/dL (8.5-10.5); Carbon Dioxide 21 mmol/L (22-29); Chloride 105 mmol/L (98-107); Glucose 165 mg/dL (65-115); Osmolality Calculated 288 mOsm/kg (285-295); Potassium 3.9 mmol/L (3.5-5.1); Sodium 136 mmol/L (136-145)
[2025-07-24] MEDS: APIXABAN 2.5 MG TABLET PO (08:09)
[2025-07-24] MEDS: ceFAZolin 2,000 MG in sodium chloride 0.9% (plus) 50 ML 100 MG IV (08:11)
[2025-07-24] MEDS: acetaminophen 1,000 MG/100 ML PIGGYBACK 400 MG IV (08:13)
--- NOTE | 2025-07-24 10:43 | PC.CHAP ---
Pastoral Care Encounter/Spiritual Assessment Type of Contact [] Declined acupressurist visit [] Patient/Family/Request visit [] Outpatient visit [] Follow-up visit [] Physician referral [] Code/Alert [x] Routine visit [] Staff referral [] Actively dying [] Patient sleeping [] Family support [] [] Out of room [] Palliative care [] [] Receiving care in room [] Pre-surgical visit [] Trauma [] Long length of stay [] ICU visit [] Other: Relational/Emotional Strength [x] Patient feels connected with others/family/visitors/staff [] Distress [] Loneliness/isolation [] Abandonment Spirituality of Patient [x] Person of Marci [] Attends Rastafari of their Marci [x] Believes in Prayer [] Reads Bible or Latter Day materials [] There are Spiritual issues to be addressed Jordan Man Interventions [x] Prayer [x] Active listening [] Non-anxious presence [x] Spiritual/emotional support [] Crisis/trauma care [] Spiritual counseling [] Bereavement support [] Provided bereavement packet [] Provided Bible/devotional materials [] Provided toy/stuffed animal, coloring book to patient or family member [] Provided Communion [] Anointing/[place] [] Salvation [x] Completed spiritual assessment [] Other: Impact on Illness or Injury [] Angry [] Fearful [] Anxious [] Often cries [] Exhaustion [] Unable to work [] Unable to attend mormon [] Unable to walk/stand [] Unable to read [] Unable to drive [] Unable to eat/drink [] Unable to sleep [] Unable to be with family [] Patient intubated [] Other: Summary Time spent with patient 5 min
--- NOTE | 2025-07-24 11:04 | P.PN_ITS ---
Subjective 2 Subjective: He reports he is doing well this morning. Awaiting PT evaluation. Vitals/I&O/Wt Last Vital Signs Temp 98 F 07/24/25 07:43 Pulse 74 07/24/25 07:43 Resp 18 07/24/25 08:09 BP 119/81 07/24/25 07:43 Pulse Ox 97 07/24/25 08:09 O2 Del Method Room Air 07/24/25 04:00 07/23/25 07/24/25 07/24/25 22:59 06:59 14:59 Intake Total 767.5 / 1317.5 1150 / 2467.5 390 / 390 Output Total 300 / 440 400 / 840 700 / 700 Balance 467.5 / 877.5 750 / 1627.5 -310 / -310 Weight last 48 hrs Weight 103.419 kg Weight 104.326 kg Physical Exam 2 Const: COMMON NORMALS: patient oriented x3 and alert GENERAL APPEARANCE: c ooperative ORIENTATION/CONSCIOUSNESS: Yes awake HENMT: COMMON NORMALS: oropharynx normal Neck/C-Spine: COMMON NORMALS: no JVD Resp: COMMON NORMALS: normal respiratory effort and clear to auscultation bilaterally AUSCULTATION: clear to auscultation bilaterally Cardio: COMMON NORMALS: no JVD, regular rhythm, S1 normal heart sound present, S2 normal heart sound present and No murmurs present (Cardio) RHYTHM: regular rhythm HEART SOUNDS: S1 normal heart sound present and S2 normal heart sound present GI: COMMON NORMALS: Normal to inspection, nondistended, normoactive bowel sounds present, Soft to palpation and non-tender PALPATION: Yes Soft to palpation Extremity: COMMON NORMALS: no joint enlargement and no pedal edema OTHER: Left knee postop dressing Neuro: COMMON NORMALS: patient oriented x3 and moves all extremities S ENSORIUM/ORIENTATION: Yes alert Skin: COMMON NORMALS: no rashes or lesions noted GENERAL SKIN EXAM: no rashes or lesions noted Urinary Catheter Management: Devlin: Cath Placed During This Visit: yes, but has since been removed by the nurse Reason for Continuing Indwelling Catheter: Decision to DC Catheter Urinary Catheter Date of Insertion: 07/23/25 Urinary Catheter Time of Insertion: 12:00 Date Urinary Catheter Removed: 07/24/25 Time Urinary Catheter Discontinued: 08:19 Data 07/24/25 05:51 07/24/25 05:51 A&P Assessment and plan 1. Osteoarthritis of left knee, unspecified osteoarthritis type: 2. Essential (primary) hypertension: Plan: # Left knee DJD, end-stage s/p left knee arthroplasty 07/23/2025 Doing well postoperatively. Pain has been under control. Denies chest pain or pressure, no trouble breathing. Reviewed hemoglobin, with baseline around 14, decreased down to 12.9. Reviewed BMP. Reviewed surgery note, knee x-ray. Discussed with nursing, porter sample case. - ortho primary and managing, pending PT evaluation this morning - post-operative DVT prophylaxis with Eliquis 2.5 mg BID, to start 07/24/25, ortho has ordered - pain control, his current regimen includes Tylenol 1000 mg IV Q8H x3 then stop Hydromorphone 0.5 mg IV Q4H prn Ketorolac 15 mg IV Q6H prn Oxycodone IR 5 mg PO Q4H prn Tramadol 50 mg PO Q4H prn - bowel regimen - incentive spirometer # Primary HTN BP at goal, discussed with him antihypertensives have been held. Discussed with him holding parameters at home for his blood pressure medications with risk of hypotension. He has not been checking blood pressures counseled on obtaining a BP cuff and monitoring blood pressures, long-term targeting blood pressures 120/80. Holding parameters added to discharge instructions. He is okay for discharge from hospitalist perspective. PDMP PDMP Reviewed: Not Reviewed Attestations 2 Medical Necessity Statement*: Anticipated return home today. and High MDM includes amount and/or complexity of data reviewed/ordered [ resulted lab(s)/test(s), ordered lab(s)/test(s) and other healthcare professional discussion] and described risk of complication, morbidity or mortality of management as documented Diagnoses Osteoarthritis of left knee, unspecified osteoarthritis type M17.12 Osteoarthritis type: unspecified Essential (primary) hypertension I10
[2025-07-24] MEDS: chlorhexidine gluconate 0.12% Btl 473 mL 30 ML MUCOUS MEM ×2 (11:20→16:02)
[2025-07-24] MEDS: mupirocin oint 22 gm 1 APPLIC NASAL (16:02)
--- NOTE | 2025-07-24 18:10 | P.DS_ITS ---
Discharge Providers Date of Admission: 07/23/25 15:27 Date of Discharge: July 24, 2025 Attending Provider at Admission: Alex Dickens DO Attending Provider at Discharge: Alex Dickens DO Consults: Hospitalist team Primary Care Provider: Thaddeus Burnham MD Diagnoses at Discharge Discharge Diagnosis 1. Osteoarthritis of left knee, unspecified osteoarthritis type: 2. Essential (primary) hypertension: 3. Status post total left knee replacement using cement: Reason for Visit Reason for Visit: M17.12 Brief History: Status post left total knee arthroplasty?Drew robotic assisted Hospital Course Hospital Course Patient presented to the preoperative holding area with plan for left total knee arthroplasty after patient has been worked up in the outpatient setting for failed conservative treatment of left knee degenerative joint disease. Once cleared by anesthesia for surgery patient subsequently was taken back to the operative suite underwent anesthesia per anesthesia department and then subsequently underwent a left total knee arthroplasty. Procedure was performed without any complications patient was taken to PACU in stable condition patient recovered well in PACU and then was admitted to the floor postoperatively internal medicine was consulted and on board for medical management and assistance with care. Patient received appropriate PT/OT, postoperative antibiotics, postoperative TXA, pain control, postoperative DVT prophylaxis. Elevation and ice. Patient encouraged for knee range of motion allowed weightbearing as tolerated to the operative lower extremity. Dressing was changed as needed, labs were monitored daily. Patient recovered well postoperatively and worked well and progressed well with therapy. It was determined on postoperative day 1 the patient was stable for discharge from an orthopedic standpoint and medicine. Patient was comfortable with discharge and plan was discharged home. Patient received appropriate discharge instructions as well as pain medication and DVT prophylaxis postoperatively. Given appropriate instructions for dressing management. Patient will follow-up with Dr. Dickens/orthopedics in the office in 2 weeks. All questions answered. Understand if there is any issues questions or concerns and contact the office. Physical Exam Narrative: Left knee examination: Dressing on in place, clean dry and intact. No evidence of saturation. Patient has normal postoperative swelling and tenderness to palpation to the knee. Compartments are soft compressible,'s calf soft and nontender. Sensations intact to light touch distally. Distal pulses are palpable. Patient is able to wiggle toes as well as plantarflex and dorsiflex ankle. Urinary Catheter Management: Devlin: Cath Placed During This Visit: yes, but has since been removed by the nurse Reason for Continuing Indwelling Catheter: Decision to DC Catheter Urinary Catheter Date of Insertion: 07/23/25 Urinary Catheter Time of Insertion: 12:00 Date Urinary Catheter Removed: 07/24/25 Time Urinary Catheter Discontinued: 08:19 Discharge Data Studies Completed and Pending Completed Studies During Hospitalization Category Date Time Status XR knee LT 1-2V [id number] Routine Exams 07/23/25 12:02 Completed Pending at discharge Category Date Time Status Basic Metabolic Panel AM LABS Lab 07/25/25 04:00 Ordered Basic Metabolic Panel AM LABS Lab 07/26/25 04:00 Ordered Complete Blood Count w/Auto AM LABS Lab 07/25/25 04:00 Ordered Complete Blood Count w/Auto AM LABS Lab 07/26/25 04:00 Ordered Radiology Impressions Knee X-Ray 07/23/25 12:02 IMPRESSION: Status post uncomplicated left total knee arthroplasty. Prosthesis appears to be in satisfactory position. No postprocedure fracture. Laboratory Results WBC 10.95 10^3/uL (3.29-11.43) 07/24/25 05:51 RBC 3.93 10^6/uL (3.85-5.65) 07/24/25 05:51 Hgb 12.90 g/dL (11.27-16.99) 07/24/25 05:51 Hct 37.2 % (37-53) 07/24/25 05:51 MCV 94.7 fl (82-101) 07/24/25 05:51 MCH 32.8 pg (27-33) 07/24/25 05:51 MCHC 34.7 g/dL (30-55) 07/24/25 05:51 RDW 14.0 % (12.1-15.1) 07/24/25 05:51 Plt Count 214 10^3/cmm (157-399) 07/24/25 05:51 MPV 9.2 fL (7.4-10.4) 07/24/25 05:51 Neut % (Auto) 85.2 % 07/24/25 05:51 Lymph % (Auto) 9.1 % 07/24/25 05:51 [place] % (Auto) 5.3 % 07/24/25 05:51 Eos % (Auto) 0.0 % 07/24/25 05:51 Baso % (Auto) 0.1 % 07/24/25 05:51 Neut # (Auto) 9.33 10^3/uL (1.8-7.7) H 07/24/25 05:51 Lymph # (Auto) 1.0 10^3/uL (0.8-4.8) 07/24/25 05:51 [place] # (Auto) 0.6 10^3/uL (0.2-0.9) 07/24/25 05:51 Eos # (Auto) 0.0 10^3/uL (0.0-0.8) 07/24/25 05:51 Baso # (Auto) 0.0 10^3/uL (0.0-0.1) 07/24/25 05:51 Nucleated RBC % (auto) 0 % 07/24/25 05:51 Nucleated RBCs # 0.0 /100WBC 07/24/25 05:51 Sodium 136 mmol/L (136-145) 07/24/25 05:51 Potassium 3.9 mmol/L (3.5-5.1) 07/24/25 05:51 Chloride 105 mmol/L (98-107) 07/24/25 05:51 Carbon Dioxide 21 mmol/L (22-29) L 07/24/25 05:51 Anion Gap 13.9 (5-19) 07/24/25 05:51 BUN 18 mg/dL (8-23) 07/24/25 05:51 Creatinine 1.0 mg/dL (0.7-1.2) 07/24/25 05:51 GFR Calculation 76.0 mL/min (90-130) L 07/24/25 05:51 Glucose 165 mg/dL (65-115) H 07/24/25 05:51 Calculated Osmolality 288 mOsm/kg (285-295) 07/24/25 05:51 Calcium 8.2 mg/dL (8.5-10.5) L 07/24/25 05:51 Blood Type AB Positive 07/23/25 09:40 Rho(D) Type Rh positive 07/23/25 09:40 Antibody Screen Negative 07/23/25 09:40 Vitals Last Vital Signs Temp 97.9 F 07/24/25 15:33 Pulse 68 07/24/25 15:33 Resp 18 07/24/25 16:47 BP 121/78 07/24/25 15:33 Pulse Ox 96 07/24/25 15:33 O2 Del Method Room Air 07/24/25 04:00 Discharge Plan Discharge Patient Disposition: Home Condition: Stable Prescriptions: New calcium carbonate-vitamin D3 [Calcium 600 + D(3)] 600 mg-10 mcg (400 unit) tablet 1 tab PO DAILY 30 Days Qty: 30 0RF Eliquis 2.5 mg tablet 2.5 mg PO BID 14 Days Qty: 28 0RF cefadroxil 500 mg capsule 500 mg PO BID 7 Days Qty: 14 0RF oxycodone 5 mg tablet 5 mg PO Q6H PRN (Reason: pain postop) 7 Days Qty: 28 0RF Continued losartan 100 mg tablet 100 mg PO DAILY potassium chloride 10 mEq tablet extended release 10 meq PO DAILY hydrochlorothiazide 25 mg tablet 25 mg PO DAILY amlodipine 5 mg tablet 5 mg PO DAILY Held meloxicam 15 mg tablet 15 mg PO DAILY Hold Instructions: Resume on 08/07/25. Creative Art Therapist OK for DC: Hospitalist Discharge Order = DC NOW: Discharge Order (Routine); Ordered 07/24/25 Ordered By: Alex Dickens Other Ambulatory Orders: Physical Therapy Eval and Treat Outpatient (Order) Timeframe: 3 Days Facility: [facility] - Location: Physical Therapy Ordered By: Alex Dickens Referrals: Kumar Dickens PA [Physician Sap Portal Architect, Orthopedics] - 08/07/25 3:00 pm Discharge Diet: Regular Discharge Activity: Limit activity as instructed and Use walker/crutches as instructed Patient Instructions: Cefadroxil (By mouth), Oxycodone/Acetaminophen (By mouth), Ondansetron (By mouth), Apixaban (By mouth) (Eliquis), Acute Wound Care (DC), Total Knee Replacement (DC), Post Anesthesia Care Activity Restrictions/Additional Instructions: Orthopedic discharge instructions: Keep incisions clean dry and intact, leave Silverlon bandage dressings on in place for 7 days after that may rinse incisions with warm soapy water pat dry and redress with a dry dressing. Patient may weight-bear as tolerate to the operative extremity Utilize walker as needed Encourage knee range of motion Ice and elevate as needed for pain and swelling Take pain medication as prescribed Take antinausea medication as needed Supplement with calcium vitamin D for bone health and healing Pain medication can cause constipation. take [id number] stool softeners and or MiraLAX. Take antibiotic as prescribed for infection prevention Utilize incentive spirometry 10 times every hour Take prescribed Eliquis twice daily for the next 14 days for blood clot prevention May supplement for pain with Tylenol aefd-rjb-[id number] as needed(1000 mg every 8 hours-do not exceed more than 3000mg in 24-hour period) No baths or soaks Follow-up in the orthopedic office in 2 weeks Contact the office for any questions or concerns Continue to monitor blood pressures as discussed. Continue to target blood pressure is 120/80 long-term. If your blood pressure is getting low, 100 or less top number or 50 or less bottom number, hold amlodipine, HCTZ and losartan at that time. If your blood pressure is between 100 and 120 systolic, hold amlodipine and/or HCTZ, continue losartan. Discharge Attestations Time Spent in Discharge Care*: less than 30 min Quality Metrics Clinical Quality Measures [ No reported AMI, CVA or VTE this stay] Coding Level of Care Code Acute Code for [facility] Diagnoses Osteoarthritis of left knee, unspecified osteoarthritis type M17.12 Osteoarthritis type: unspecified Essential (primary) hypertension I10 Status post total left knee replacement using cement Z96.652
== END 2025-07-24 18:20 | disposition home or self-care (01) ==
LOC: MEDSURG 15:28
PROVIDERS: Physician Assistant; Admitting Provider Student in an Organized Health Care Education/Training Program; PCP Family Medicine; Visit Provider Student in an Organized Health Care Education/Training Program
PROC: 8E0Y0CZ Robotic Assisted Procedure of Lower Extremity, Open Approach (ICD-10-PCS; CPT 27447; principal; 2025-07-23 11:30)
DX: M17.12 Unilateral primary osteoarthritis, left knee (principal); I10 Essential (primary) hypertension
CPT/HCPCS: 27447; 20985; 36415; 51702; 73560; 80048; 85025; 86850; 86900; 97116; 97161; 97165; A4216; C1713; C1776; G0378; J0131; J0169; J0690; J1100; J1885; J2250; J2405; J2704; J2795; J7030; J7120; J9999; L8699

== ENCOUNTER → 2025-08-07 15:13 | Outpatient (BNVA) | payer OTHER, SELFPAY | PROVIDERS: PCP Family Medicine; Visit Provider Physician Assistant | DX: Z98.890 Other specified postprocedural states (principal); Z96.652 Presence of left artificial knee joint | CPT/HCPCS: 73560; 73565 ==

== ENCOUNTER 2025-08-15 13:33 | Outpatient (RCR) | payer OTHER, SELFPAY | END 2025-08-29 23:59 | disposition home or self-care (01) | LOC: SPT 13:33 | PROVIDERS: Visit Provider Student in an Organized Health Care Education/Training Program | DX: M17.12 Unilateral primary osteoarthritis, left knee (principal) | CPT/HCPCS: 97110; 97161 ==

== ENCOUNTER 2025-08-20 08:06 | Day surgery (SDC) | payer OTHER, SELFPAY ==
[2025-08-20] VITALS (9 sets, daily range): BP systolic 100–127; BP diastolic 79–90; PULSE 75–87; RESP 14–17; TEMP 36.6–36.8; O2SAT 95–99; BMI 30.3
[2025-08-20] MEDS: acetaminophen 1,000 MG/100 ML PIGGYBACK 400 MG IV (08:51)
--- NOTE | 2025-08-20 09:40 | ANES.PREANE2 ---
Pre-Anesthetic Assessment Height/Weight: Height 6 ft 1 in Weight 230 lb Temp Pulse Resp BP Pulse Ox O2 Del Method 97.9 F 75 17 123/87 96 Room Air 08/20/25 08:45 08/20/25 08:45 08/20/25 08:45 08/20/25 08:45 08/20/25 08:45 08/20/25 08:45 Preop Diagnosis: Carpal/cubital tunnel syndrome Operation Date: 08/20/25 10:05 Proposed Procedures p RIGHT Carpal Tunnel Release(Right) - Alex Dickens DO s RIGHT Cubital Tunnel Release w/ POSSIBLE Ulnar Nerve Decompression(Right) - Alex Dickens DO Was Beta Billy taken within 24 hours: N/A Was Clonidine taken within 24 hours: N/A Last intake: Intake Last Liquid Date 08/19/25 Last Liquid Time 22:00 Last Solid Date 08/19/25 Last Solid Time 20:00 Social No alcohol and No tobacco Exam alert, oriented x 3, clear to auscultation bilaterally and regular rate & rhythm Airway Submandibular: within normal limits Cervical ROM: within normal limits Mallampati: Class II Dentition: full Anesthetic Plan ASA status: 2 Anesthesia: Choice and Regional (specify below) Other: No prior issues with anesthesia NPO since yesterday evening History of hypertension on amlodipine and HCTZ Active individual at baseline Labs reviewed 07/24/2025 and acceptable for procedure Plan for MAC anesthesia with local via surgeon Medications/Allergies Home Medications ?Medication ?Instructions ?Recorded ?Confirmed ?Last Taken ?Type hydrochlorothiazide 25 mg tablet 25 mg PO DAILY 04/15/21 08/16/25 08/19/25 History losartan 100 mg tablet 100 mg PO DAILY 04/15/21 08/16/25 08/19/25 History potassium chloride 10 mEq 10 meq PO DAILY 04/15/21 08/16/25 08/19/25 History tablet,extended release amlodipine 5 mg tablet 5 mg PO DAILY 09/16/21 08/16/25 08/19/25 History meloxicam 15 mg tablet 15 mg PO DAILY 07/19/25 08/16/25 07/17/25 History Held on 07/24/25. Instructions: Resume on 08/07/25. calcium 600 mg (as 1 tab PO DAILY Bone health and 07/24/25 08/16/25 08/16/25 Rx carbonate)-vitamin D3 10 mcg (400 healing 30 days #30 tabs unit) tablet (Calcium 600 + D(3)) oxycodone 5 mg tablet 5 mg PO Q6H PRN pain postop 7 days 08/06/25 08/16/25 08/19/25 Rx #28 tabs methocarbamol 500 mg tablet 500 mg PO TID PRN Spasms 08/16/25 08/16/25 08/19/25 History Allergies Allergy/AdvReac Type Severity Reaction Status Date / Time No Known Allergies Allergy Verified 08/16/25 14:25 Current Medications Generic Name Dose Route Start Last Admin Trade Name Freq PRN Reason Stop Dose Admin Sodium Chloride 1,000 mls @ 30 mls/hr 08/20/25 08:30 08/20/25 08:51 Sodium Chloride 0.9% IV 08/21/25 08:29 30 mls/hr .Q24H PILAR Administration PFSH Anesthesia Medical History (Updated 07/23/25 @ 19:59 by Tejas Guan NP) Right knee DJD Hypertension Surgical History (Updated 07/27/25 @ 11:00 by Alex Dickens DO) History of open reduction and internal fixation (ORIF) procedure right femur History of left knee surgery Social History Smoking and tobacco/nicotine status: never used tobacco/nicotine Alcohol intake: current Alcohol intake frequency: 3 or more drinks per day Alcohol type: hard liquor Substance/Drug Use: never
--- NOTE | 2025-08-20 10:39 | ANES.PROC ---
Anesthesia Procedures Procedure/Date: 08/20/25 Right supraclavicular nerve block for postoperative pain control Nerve Block ^: Nerve Block 1: Main Anesthesia: other (100 mcg fentanyl) Time Out Performed: Yes Consent: requested by attending/covering physician and from patient Laterality: Right Nerve block location: supraclavicular Anesthesia monitors applied: pulse oximetry, EKG, BP cuff and oxygen Nerve block position: supine Anesthetic Used: ropivicaine 0.5% Amount of anesthesia used (mL): 30 Ultrasound used to: recognize landmarks Nerve Stimulator Used?: Yes Interscalene/Femoral BLK: other needle (pjunk 4inch) Injection: neg aspiration of heme Patient Tolerated Procedure: well Complications: none Additional Comments: Decadron 4 mg added to block
--- NOTE | 2025-08-20 10:50 | W.PM.OPSFHP ---
Same Day Surgery H&P Indication for Procedure/HPI DATE OF PROCEDURE: August 20, 2025 CHIEF COMPLAINT/INDICATIONFOR SURGICAL PROCEDURE: Right carpal tunnel syndrome, right cubital tunnel syndrome PREOP DIAGNOSIS: Right carpal/cubital tunnel syndrome PLANNED PROCEDURE: Operation Date: 08/20/25 10:05 Proposed Procedures p RIGHT Carpal Tunnel Release(Right) - Alex Dickens DO s RIGHT Cubital Tunnel Release w/ POSSIBLE Ulnar Nerve Decompression(Right) - Alex Dickens DO Medications/Allergies* Home Medications ?Medication ?Instructions ?Recorded ?Confirmed ?Type hydrochlorothiazide 25 mg tablet 25 mg PO DAILY 04/15/21 08/16/25 History losartan 100 mg tablet 100 mg PO DAILY 04/15/21 08/16/25 History potassium chloride 10 mEq 10 meq PO DAILY 04/15/21 08/16/25 History tablet,extended release amlodipine 5 mg tablet 5 mg PO DAILY 09/16/21 08/16/25 History meloxicam 15 mg tablet 15 mg PO DAILY 07/19/25 08/16/25 History Held on 07/24/25. Instructions: Resume on 08/07/25. methocarbamol 500 mg tablet 500 mg PO TID PRN Spasms 08/16/25 08/16/25 History Allergies/Adverse Reactions Allergy/AdvReac Type Severity Reaction Status Date / Time No Known Allergies Allergy Verified 08/16/25 14:25 Current Medications: Generic Name Dose Route Start Last Admin Trade Name Freq PRN Reason Stop Dose Admin Sodium Chloride 1,000 mls @ 30 mls/hr 08/20/25 08:30 08/20/25 08:51 Sodium Chloride 0.9% IV 08/21/25 08:29 30 mls/hr .Q24H PILAR Administration Pertinent History/Comorbid Conditions* Medical History (Updated 07/23/25 @ 19:59 by Tejas Guan NP) Right knee DJD Hypertension Surgical History (Updated 07/27/25 @ 11:00 by Alex Dickens DO) History of open reduction and internal fixation (ORIF) procedure right femur History of left knee surgery Social History Smoking and tobacco/nicotine status: never used tobacco/nicotine Alcohol intake: current Alcohol intake frequency: 3 or more drinks per day Alcohol type: hard liquor Substance/Drug Use: never Pertinent Exam Findings alert, oriented x 3, operative site marked and procedure specific exam findings Please refer to anesthesia preoperative valuation for heart and lung findings Please refer to detail orthopedic examination on 07/04/2025 listed below: Bilateral Hand exam-positive Tinel's and positive Phalen's test. no thenar atrophy and no thenar muscle weakness. Full range of motion in fingers and wrist and fingers are warm and well-perfused with normal cap refill under 2 seconds. Radial pulse 2+, no intrinsic muscle weakness noted. Bilateral Elbow exam-positive Tinel's test Recommendations Risks and benefits of procedure reviewed and Patient/family agree to proceed Surgery/Procedure today Other Plans: Plan to proceed to the OR today for right carpal tunnel release and right cubital tunnel release with possible nerve transposition. Patient understands the ins and outs procedure the risk benefits complication alternative surgical nonsurgical treatment options. Understanding risk of surgery patient elects proceed with surgical invention. All questions answered at this time. Coding Level of Care Code Acute Code for Chg Fwd
--- NOTE | 2025-08-20 12:25 | P.BOP_ITS ---
Date of Procedure: 08/20/2025 Surgeon: Alex Dickens DO Cloud Services Architect(s): TASHA Zuñiga Procedure(s) performed: Right carpal tunnel release Right cubital tunnel release (ulnar nerve decompression at the elbow) Findings of the procedure(s): Underwent procedure as planned without issues or complications patient had no subluxation as of the ulnar nerve as a result no transposition needed. Patient tolerated procedure well without issue complication taken recovery stable condition with sling on in place and bulky soft dressing Estimated blood loss: 10 mL Specimen(s) removed: None Post-operative diagnosis: Right carpal tunnel syndrome, right cubital tunnel syndrome
--- NOTE | 2025-08-20 12:27 | PM.OP ---
Operative Report Date of procedure: August 20, 2025 Surgeon: Alex Dickens DO Superintendent Quarry: TASHA Zuñiga Procedure: Preoperative diagnosis: Right carpal tunnel syndrome, Right cubital tunnel syndrome Postoperative diagnosis same Procedure done: Right carpal tunnel release Right cubital tunnel release (ulnar nerve decompression at the elbow) Surgeon: Alex Dickens DO Estimated blood loss: 10 mL Tourniquet 28 minutes IV fluids: 1000mL Complications: None Findings: See operative report narrative Condition: stable Disposition: same day Brief History: Patient's been seen and worked up in the outpatient setting and findings consistent with preoperative diagnosis.? Patient has Right carpal tunnel syndrome as well as Right?cubital tunnel syndrome which has been worked up in the outpatient setting has physical exam findings consistent with this as well as confirmatory nerve conduction/EMG nerve conduction study consistent with diagnosis. As result through shared decision making agreed to proceed with? Right carpal tunnel and Right?cubital tunnel release with possible ulnar nerve transposition we talked about treatment options as far as nonoperative and operative intervention.? Understands risk benefits complication alternatives surgical nonsurgical treatment options.? Understanding risks pt agrees to proceed with surgical intervention. Understanding these risks pt agrees to proceed with surgery.? Consent obtained in preop. Procedure: Patient seen evaluate in the preoperative holding area.? Consent was reviewed and signed with patient.? Correct extremity marked.? Patient seen evaluated by anesthesia department once cleared for surgery was then taken back to the operative suite placed in supine position all bony prominences well-padded patient properly secured to bed.? Right upper extremity placed onto armboard.? Nonsterile tourniquet applied Right upper arm.? Patient then underwent anesthesia per the anesthesia department.? Patient's Right upper extremity was then prepped and draped in standard orthopedic fashion.? Final timeout performed.? Patient received appropriate preoperative antibiotics. Esmarch was used exsanguinate the Right upper extremity.? Tourniquet was insufflated to 250 mmHg. I started with the carpal tunnel release first.? I made a standard open carpal tunnel release starting with the distal most extent in the palm at the Fountain's cardinal line and the incision line was made in line with the fourth ray and ended just distal to the wrist crease.? Sharp scalpel incision was made through skin and subcutaneous tissue I then utilizing self retainer then began to dissect with dissection scissors split longitudinally the palmar fascia.? Next I then utilizing my nutritional assistant Kasdan retractors subsequently utilizing scalpel feathered through the palmaris brevis as well as through the transverse carpal ligament distally.? Once I encountered the floor of the transverse carpal ligament and entered into the carpal tunnel I then switched to dissection scissors.? Carefully released the distal extent of the transverse carpal ligament to the palmar fat.? Care was to protect the recurrent branch and not injured this during this part of the case.? Next I then placed a [place] underneath the transverse carpal ligament proximally to protect the nerve in the carpal tunnel contents.? And then I subsequently under loupe magnification utilize my dissection scissors to release the transverse carpal ligament into the antebrachial fascia under direct visualization with care to keep my scissors with a curved ulnarly away from the palmar cutaneous branch.? The transverse carpal was then completely decompressed proximally and a [place] was then placed both distally and proximally throughout the carpal tunnel and had complete decompression of the nerve.? The nerve did appear to have hourglass shape as it went through the carpal tunnel.? With significant irritation noted around the nerve.? No masses were noted within the contents of the carpal tunnel.? This completed the carpal tunnel release and then I subsequently irrigated the wound bed and placed a wet Ray-Melany into the incision for later closure. Next marked out the landmarks of the Right elbow of the medial epicondyle and olecranon and made a curvilinear incision following the course of the ulnar nerve at the medial aspect of the elbow.? Sharp scalpel incision was made through skin and subcutaneous tissue.? Next I switched to Littler dissection scissors and spread in plane of the medial antebrachial cutaneous nerve branching which was protected throughout this part of the dissection.? Then I directly came down over the fascia and identified the 2 heads of the FCU fascia and split this Right in the middle and subsequently identified my ulnar nerve distally.? This was then completely released distally under direct visualization and loupe magnification.? Once the nerve was then identified I then subsequently tracked this proximally and released this through Ceja's ligament as well as complete decompression of the nerve proximally all the way past the intermuscular septum.? The nerve was completely released and decompressed both proximally and distally.? Ulnar nerve neurolysis performed and completed both proximally and distally with dissection scissors.? I then took the elbow through range of motion and there was no instability or subluxating of the ulnar nerve.? This completed?cubital tunnel release.? Next the wound bed was thoroughly irrigated.? Tourniquet was deflated.? Hemostasis was satisfactory at the?cubital tunnel release surgery site. I then inspected the carpal tunnel incision and this was found to have satisfactory hemostasis and all this was maintained through bipolar electrocautery.? At this point time I sequentially closed?cubital tunnel site with 3-0 Vicryl suture in a running horizontal mattress nylon stitch.? ? The carpal tunnel release surgery was then closed in standard interrupted mattress fashion.? Dressing was Xeroform 4 x 4's ABD Curlex soft roll and an Fabián wrap has a bulky soft dressing. Patient was then awakened from anesthesia and taken to PACU in stable condition. Disposition: Patient taken to PACU in stable condition recovering well.? Patient will receive appropriate discharge instructions as well as pain medication postoperatively.? We will follow-up with ortho in the office in 2 weeks.? Patient understands agrees with current plan.? All questions answered.? Pt understands if any questions or concerns and contact the office for follow-up appointment.
--- NOTE | 2025-08-20 14:02 | ANE.PACU2 ---
Inpatient post-anesthesia follow up: Airway intact: Yes Vital signs: Temperature 98.3 F Pulse Rate 80 Respiratory Rate 17 Blood Pressure 100/80 Pulse Oximetry 96 Oxygen Delivery Me thod Room Air Oxygen Flow Rate Fraction of Inspir ed Oxygen Hydration adequate: Yes Nausea and vomiting: No Pain level: 1 Mental status: Baseline
== END 2025-08-20 14:02 | disposition home or self-care (01) ==
PROVIDERS: PCP Family Medicine; Visit Provider Student in an Organized Health Care Education/Training Program
PROC: (CPT 64721; principal; 2025-08-20 10:05)
PROC: (CPT 64718; 2025-08-20 10:05)
DX: G56.01 Carpal tunnel syndrome, right upper limb (principal); G56.21 Lesion of ulnar nerve, right upper limb; I10 Essential (primary) hypertension; Z79.891 Long term (current) use of opiate analgesic
CPT/HCPCS: 64718; 64721; 64415; 36415; J0131; J1100; J1885; J2405; J2704; J3010; J3490; J7030; J9999